=== PATIENT | male | born 1960 | race Caucasian/White ===

== ENCOUNTER → 2018-06-09 | Outpatient (CLI) | payer OTHER ==
--- NOTE | 2018-06-09 15:47 | KCIC ---
MR of the right knee Indication: Right knee pain. Surgery 2014. Injured 2 weeks ago with lateral pain and swelling. Technique: The standard multiplanar sequences are obtained. FINDINGS: Artifact: No significant image degradation. Medial meniscus: Deformity of the medial meniscus with blunting and increased signal, compatible with a tear. Full-thickness radial tear at the posterior root attachment. Medial subluxation. Lateral meniscus: Intact. Anterior cruciate ligament: Intact Posterior cruciate ligament: Intact Medial collateral ligament: Proximal scarring Lateral structures: * Iliotibial band: Intact. * Lateral collateral ligament: Intact. * Biceps femoris tendon: Intact * Popliteus tendon attachment: Intact Extensive mechanism: * Patellar tendon: Mild metallic artifact signal at the proximal tendon could be postsurgical or metallic foreign body. No acute tear. * Quadriceps tendon: Intact * Retinacular structures: Intact Fluid: Small joint effusion. Small Rendon's cyst. Mild fluid/hemorrhage tracking along the posterior knee. Intra-articular bodies: None visualized Joint compartments * patellofemoral joint: Severe chondromalacia * medial compartment: Moderate to severe chondromalacia. Mild subchondral marrow edema at the posterior nonweightbearing medial femoral condyle. * lateral compartment: Mildly depressed subchondral fracture of the posterior lateral tibial plateau, posttraumatic. Fracture demonstrates 2 mm depression. Bones: No other fractures are identified. Soft tissue: Mild anterior subcutaneous edema Impression: 1. Medial meniscal tear. 2. Primary osteoarthritis. 3. Mildly depressed posttraumatic subchondral fracture of the posterior lateral tibial plateau. Voicemail with this finding was left at the referring physician's office. Electronically signed by: Ramez Medel MD (06/09/2018 3:44 PM) [facility]
== END | disposition home or self-care (01) ==
LOC: KCIC MRI 14:37
PROVIDERS: ATTEND Neuromusculoskeletal Medicine & OMM
DX: S83.241A Other tear of medial meniscus, current injury, right knee, initial encounter (principal); M17.11 Unilateral primary osteoarthritis, right knee; X58.XXXA Exposure to other specified factors, initial encounter; Y93.89 Activity, other specified; Y92.89 Other specified places as the place of occurrence of the external cause; Y99.8 Other external cause status
CPT/HCPCS: 73721

== ENCOUNTER 2021-08-01 20:20 | Inpatient (IN) | payer BC ==
[~2021-08-01] VITALS: Ht 188 cm; Wt 114.3 kg
[2021-08-01 20:28] VITALS: BP 140/98
--- NOTE | 2021-08-01 20:35 | NUR ---
The patient, SILVANO WALKER, 60 y/o, M admitted by SUPRIYA REID MD, was given written information regarding hospital policies, unit procedures and contact persons. Pt arrived to unit per ems pt assisted to bed with standby assist campus monitor applied vs obtained and stable pt denied pain at this time but c/o shortness of breath o2 @2l applied to pt assessment completed poc explained to pt. Call placed to for further admit orders call light placed in reach will resume care and continue to monitor pt.
[2021-08-01] MEDS ORDERED: METOPROLOL TART IMMED RELEASE 25 MG TABLET. PO ONE (21:15)
[2021-08-01] MEDS ORDERED: METO25TA4 PO (21:22)
[2021-08-01] MEDS ORDERED: METF10007 PO (21:22)
[2021-08-01] MEDS ORDERED: CITA20TA9 PO (21:22)
[2021-08-01] MEDS ORDERED: POTA20TA4 PO (21:22)
[2021-08-01] MEDS ORDERED: TIOT18CA IH (21:22)
[2021-08-01] MEDS ORDERED: FURO40TA4 IVP (21:22)
[2021-08-01] MEDS ORDERED: ASPI-630 PO (21:22)
[2021-08-01] MEDS ORDERED: CLON0.2T PO (21:22)
[2021-08-01] MEDS ORDERED: LOSA-73 PO (21:22)
[2021-08-01] MEDS ORDERED: MULT-735 PO (21:22)
[2021-08-01] MEDS ORDERED: LATA7.5D OU (21:22)
[2021-08-01] MEDS ORDERED: PEG15DRO4 OS (21:22)
[2021-08-01] MEDS ORDERED: METO50TA4 PO (21:22)
[2021-08-01] MEDS ORDERED: TERA1CAP3 PO (21:22)
[2021-08-01] MEDS ORDERED: SPIR25TA5 PO (21:22)
[2021-08-01] MEDS ORDERED: ALBU2.5V14 NEB (21:22)
[2021-08-01] MEDS ORDERED: ATOR20TA PO (21:22)
[2021-08-01] MEDS ORDERED: DORZ1DRO5 EACHEYE (21:22)
[2021-08-01] MEDS ORDERED: DEXTROSE 50% 25 GM / 50ML DISP.SYRIN. IV PRN (21:45)
[2021-08-01] MEDS ORDERED: ATORVASTATIN CALCIUM 20 MG TABLET PO SCH (22:00)
[2021-08-01] MEDS: TERAZOSIN 1 MG CAPSULE. PO SCH (22:33)
[2021-08-01] MEDS: cloNIDine HCL 0.2 MG TABLET PO SCH (22:33)
[2021-08-01] MEDS: LATANOPROST 0.005% OPHTH SOLUTION 2.5ML BOTTLE. OU SCH (22:34)
[2021-08-01] MEDS: TIMOLOL 0.5% OPHTH SOLUTION 5ML BOTTLE. OU SCH (22:35)
[2021-08-01] MEDS: DORZOLAMIDE 2% OPHTH SOLUTION 10ML BOTTLE. OU SCH (22:35)
[2021-08-01 22:41] VITALS: BP 187/86
[2021-08-02] VITALS (12 sets, daily range): BP systolic 121–213; BP diastolic 62–125
[2021-08-02] MEDS: ALBUTEROL SULFATE 2.5 MG/3 ML NEBU. NEB PRN (01:40)
[2021-08-02] MEDS: AMIODARONE 450 MG in IV DEXTROSE 5% 250 ML IV PRN ×2 (01:59→20:12)
[2021-08-02] MEDS: POTASSIUM CHLORIDE 20 MEQ TABLET.ER. PO SCH ×3 (08:00→17:20)
[2021-08-02] MEDS: INSULIN LISPRO 300 UNITS/3 ML VIAL. SQ SCH ×3 (08:00→17:21)
[2021-08-02] MEDS ORDERED: IPRATRPIUM/ALBUTEROL 0.5/2.5MG 3 ML NEBU. NEB SCH (08:00)
[2021-08-02] MEDS ORDERED: IOHEXOL 300 MG/ML 100ML VIAL. ONE (08:30)
[2021-08-02] MEDS ORDERED: LIDOCAINE 1% PF 2 ML VIAL. ONE (08:30)
[2021-08-02] MEDS: cloNIDine HCL 0.2 MG TABLET PO SCH ×3 (09:00→21:41)
[2021-08-02] MEDS: ASPIRIN CHEWABLE 81 MG TABLET. PO SCH ×2 (09:00→11:07)
[2021-08-02] MEDS: SPIRIVA INH SCH (09:00)
[2021-08-02] MEDS: SPIRONOLACTONE 25 MG TABLET PO SCH ×2 (09:00→11:05)
[2021-08-02] MEDS: CITALOPRAM 20 MG TABLET. PO SCH ×2 (09:00→11:05)
[2021-08-02] MEDS: TIMOLOL 0.5% OPHTH SOLUTION 5ML BOTTLE. OU SCH ×2 (09:00→21:40)
[2021-08-02] MEDS: LOSARTAN POTASSIUM 50 MG TABLET. PO SCH ×2 (09:00→11:05)
[2021-08-02] MEDS: MULTIVITAMIN with MINERAL TABLET. PO SCH ×2 (09:00→11:05)
[2021-08-02] MEDS: METOPROLOL SUCC 24HR ER 50 MG TAB.ER.24H. PO SCH ×2 (09:00→11:05)
[2021-08-02] MEDS: DORZOLAMIDE 2% OPHTH SOLUTION 10ML BOTTLE. OU SCH ×2 (09:00→21:40)
[2021-08-02] MEDS ORDERED: HEPARIN for IV BOLUS 10,000 UNIT/10 ML VIAL. ONE (09:08)
[2021-08-02] MEDS ORDERED: MIDAZOLAM HCL/PF 2 MG/2 ML VIAL. ONE ×2 (09:08→10:17)
[2021-08-02] MEDS ORDERED: VERAPAMIL 5 MG/2 ML VIAL. ONE (09:08)
[2021-08-02] MEDS ORDERED: fentaNYL PF VIAL 100 MCG/2 ML VIAL ONE (09:08)
[2021-08-02] MEDS ORDERED: NITROGLYCERIN 200 MCG/2 ML SYRINGE FOR CATH/VASC LAB. ONE ×2 (09:09→10:21)
[2021-08-02] MEDS ORDERED: LIDOCAINE 1% Multi-Dose 20 ML VIAL. ONE (09:21)
[2021-08-02] MEDS ORDERED: VERAPAMIL 5 MG/2 ML VIAL. IART ONE (10:00)
[2021-08-02] MEDS ORDERED: IOHEXOL 350 MG/ML 100 ML VIAL. IART ONE (10:00)
[2021-08-02] MEDS ORDERED: NITROGLYCERIN 200 MCG/2 ML SYRINGE FOR CATH/VASC LAB. IART ONE (10:00)
[2021-08-02] MEDS ORDERED: LIDOCAINE 1% Multi-Dose 20 ML VIAL. INJ ONE (10:00)
[2021-08-02] MEDS ORDERED: LIDOCAINE 1% PF 2 ML VIAL. INJ ONE (10:00)
[2021-08-02] MEDS ORDERED: MIDAZOLAM HCL/PF 2 MG/2 ML VIAL. IV ONE (10:00)
[2021-08-02] MEDS ORDERED: fentaNYL PF VIAL 100 MCG/2 ML VIAL IV ONE (10:00)
[2021-08-02] MEDS ORDERED: HEPARIN for IV BOLUS 10,000 UNIT/10 ML VIAL. IART ONE (10:00)
[2021-08-02] MEDS ORDERED: LIDOCAINE 2%/EPI 1:100,000 20 ML VIAL. ONE (10:04)
[2021-08-02] MEDS ORDERED: TIROFIBAN 5MG -0.9% NS 100 ML IV ONE ×2 (10:04→10:45)
[2021-08-02] MEDS ORDERED: CONTRAST GIVEN. MC PRN (10:15)
[2021-08-02] MEDS ORDERED: HEPARIN for IV BOLUS 10,000 UNIT/10 ML VIAL. IVP ONE (10:15)
--- NOTE | 2021-08-02 10:19 | HP ---
ADMIT DATE: 08/01/2021 HISTORY OF PRESENT ILLNESS: The patient is a 60-year-old male patient who was transferred from [facility] for cardiac catheterization. He presented to the Emergency Room with a complaint of what seemed to be paroxysmal nocturnal dyspnea. He woke up with shortness of breath the day before yesterday and the day before admission and also again he took one of his 's breathing treatment and the same thing happened the night before and therefore presented to the Emergency Room. He denied any chest pain. Did complain of chest pressure. Denied any radiation of the pain to the left arm, left neck. Denied any chills, rigors or fever. He does have multiple medical problems including type 2 diabetes mellitus, hypertension, emphysema. He apparently was a heavy smoker, quit smoking about 13 years ago, used to smoke 2 packs a day, has multiple risk factors of coronary artery disease. He did undergo cardiac catheterization on 10/10/2005. Has had also cardiac catheterization in 2016 about 5 years ago. At that time, his coronary arteries were normal. In the case, he was admitted with a diagnosis of acute hypoxic respiratory failure, acute on chronic systolic congestive heart failure and COPD exacerbation. His 3 cardiac enzymes are trending up. He was seen in consultation by the Cardiology team. He was started on a heparin drip and has an echocardiogram, which showed that his left ventricular systolic function is depressed. He has basal inferior, posterior and lateral wall hypokinesis. His ejection fraction is estimated at 40%, [id number] mitral regurgitation, mild tricuspid regurgitation. The pulmonary artery pressure estimated at 47 mmHg. There is no evidence of significant pericardial effusion and therefore, the patient was transferred to [facility] for cardiac catheterization. PAST MEDICAL HISTORY: Significant for type 2 diabetes mellitus, hypertension, hyperlipidemia, benign prostatic hypertrophy. 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 PAST SURGICAL HISTORY: Significant for YAG laser capsulotomy, both eyes; endoscopic sinus surgery, oral surgery to remove a growth on the tongue on 11/23/2015. He underwent cardiac catheterization on 12/11/2004. His aorta is about 30% thick. He has had retinal detachment to the right eye on 12/28/2014. He has cataract in the left eye, removed and he also underwent arthroscopic right knee surgery and carpal tunnel release. ALLERGIES: ALLERGIC TO ADHESIVE TAPE, but he has no known drug allergies. FAMILY HISTORY: He has 3 sisters and 2 brothers, 1 sister is positive for Manolo-Danlos syndrome, 1 sister had thyroid, hypertension, 1 sister is healthy, 1 brother at age of 55 because of alcoholism. His father at age of 68 because of congestive heart failure and COPD. His mother is still alive at the age of 85. Has multiple TIAs. SOCIAL HISTORY: He is , has three stepchildren. He quit smoking about 13 years ago. He used to smoke 2 packs a day for almost 30 years. He does not drink alcohol or use recreational drugs. He is a retired from [employer] after working there for 40 years. MEDICATIONS: He was transferred to [facility] to continue on the following medications: He was on Spiriva HandiHaler one inhalation once a day, multivitamin 1 tablet once a day, spironolactone 25 mg daily, metoprolol succinate 50 mg once a day, losartan potassium 50 mg daily, citalopram hydrobromide 20 mg daily, aspirin 81 mg once a day. He is on NovoLog insulin as per insulin sliding scale before meals, potassium chloride 40 mEq twice a day, timolol maleate 1 drop to both eyes twice a day, latanoprost 1 drop to both eyes at bedtime, dorzolamide 1 drop to both eyes twice a day and albuterol sulfate 2.5 mg by nebulizer 4 times a day, a terazosin 1 mg at bedtime, clonidine 0.2 mg twice a day, atorvastatin 20 mg at bedtime. PHYSICAL EXAMINATION: GENERAL: On arrival to the [facility], he looked well and was clearly in no apparent respiratory distress. No pallor, jaundice, cyanosis, or thyromegaly. No jugular venous distention. No lower limb edema. VITAL SIGNS: His heart rate was 87, blood pressure was 140/98, temperature was 98.6, respiratory rate was 16 and oxygen saturation was 92% on room air. HEAD, EYES, EARS, NOSE, AND THROAT: Showed normocephalic, atraumatic. NECK: Supple. HEART: Showed normal first and second heart sounds, no gallop or murmur. CHEST: Showed central trachea, equally reduced expansion, reduced air entry, vesicular breath sounds. I could not really appreciate any crepitation or rhonchi. ABDOMEN: Distended, soft, nontender. NEUROLOGIC: He was grossly intact. ASSESSMENT AND PLAN: 1. In summary, this is a 60-year-old male patient, who was admitted to [facility] with chest pressure and acute hypoxic respiratory failure, multifactorial including: A. Acute on chronic systolic congestive heart failure. B. Acute exacerbation of chronic obstructive pulmonary disease. 2. Cardiomyopathy with depressed left ventricular systolic function. 3. Mild troponin elevation. 4. Hypertension. 5. History of Manolo-Danlos syndrome. Plan is to continue all his current medication. We will consult the Cardiology team and decide the further management accordingly. JORDAN DR: Glendy TID: [id number]
[2021-08-02] MEDS ORDERED: PRASUGREL 10 MG TABLET. ONE (10:44)
[2021-08-02] MEDS ORDERED: PRASUGREL 10 MG TABLET. PO SCH (10:45)
[2021-08-02] MEDS ORDERED: PRASUGREL 10 MG TABLET. PO ONE (10:45)
[2021-08-02] MEDS: TIROFIBAN 5MG -0.9% NS 100 ML IV PRN ×2 (10:46→11:09)
--- NOTE | 2021-08-02 11:15 | NUR ---
Patient taken to room 650 post [facility]. Report given to Kristy QUEEN. Notified of order to continue Aggrastat x6hrs, Amiodarone gtt until tomorrow, 08/03. Effient 60mg given in room. Instructions provided on not using wrist, armboard-- patient and verbalized understanding. VS stable, no bleeding upon leaving room.
--- NOTE | 2021-08-02 11:17 | CARD ---
MR#: [id number] Date of Study: 08/02/2021 Ordering Physician: LESLEE LIMA, Referring Physician: LESLEE LIMA, Tech: RT Bowen(R) APPROVED REPORT Technologist: Emely Stubbs RT(R) Nurse: Elisha Piedra RN Procedure(s) performed: Fluoro time: 8.3 minutes Dose: 117.2 gycm2 Contrast: 109cc Omnipaque Mod Sedation: 56 minutes [facility] Coronary angiography PCI of the RCA IVUS of the RCA INDICATION The indication(s) include : non-STEMI , dyspnea. CSHA Clinical Frailty Scale CS Clinical Frailty Scale: Moderately Frail Heart Failure Heart Failure: Yes If Yes, Newly Diagnosed: Yes If Yes, HF Type: Diastolic Systolic If Yes, NYHA Class: Class III PROCEDURE NARRATIVE Clinical information: 60-year-old male presents to the hospital in the setting of worsening exertional dyspnea. He was fou nd to have severe LV systolic dysfunction with frequent PVCs and PACs and persistent unstable angina and elevated troponin and therefore he was taken to the catheterization laboratory for further evalua tion and treatment. Procedure details: After appropriate informed consent the right neck and right wrist were prepped and draped in usual st erile fashion. Under 1% lidocaine local anesthesia a 5 Malawian sheath was inserted into the right int ernal jugular vein via ultrasound guidance. Next a 6 Malawian sheath was inserted into the right radia l artery via the Seldinger technique. A 5 Malawian PA catheter was then advanced to the right heart chambers and pressures and saturations we re obtained. Next diagnostic angiography was performed with a 6 Malawian TIG catheter and a left ventr icular end-diastolic pressure was obtained and a pullback was performed. Findings: Aorta: 150/80 Right heart catheterization: RA 10/9/5 RV 52/2/10 PA 47/23/30 Wedge 26 mmHg PA saturation 61% FA saturation 92% Bryson cardiac output 5.9 L/min LVEDP 26 mmHg No aortic to LV pullback gradient Coronary angiography: LM: Large caliber vessel with normal angiographic appearance. LAD: Moderate to large caliber vessel with mild luminal irregularities. D1/D2: Small caliber vessels with mild luminal irregularities. LCX: Moderate caliber non-dominant vessel with mild luminal irregularities. LPL1: Moderate caliber vessel with mild luminal irregularities. RCA: Large caliber dominant vessel with a proximal 80% stenosis RPDA and RPL: Moderate caliber vessels with mild luminal irregularities Interventional technique: Heparin and tirofiban were used for anticoagulation. A 6 Malawian JR4 guide catheter was used to engag e the right coronary artery. A [employer] wire was used to cross the lesion and angioplasty was then p erformed with a 4.0 x 12 mm balloon. Next, a [employer] intravascular ultrasound catheter was advanced to the right coronary artery and measurements were made. Next, a 5.0 x 22 mm resolute drug-eluting s tent was implanted at 14 chapo. Final angiography demonstrated excellent stent expansion with AARON-3 f low in the vessel no evidence of guide or wire related complications. The patient received 60 mg of prasugrel at case completion. At case completion the right radial sheath was removed and hemostasis was achieved via a Terumo radia l band. The right IJ sheath was removed prior to the start of the intervention and hemostasis was ac hieved via manual compression. No acute complications. AARON Flow AARON Flow (Pre-Intervention): AARON-3 AARON Flow (Post-Intervention): AARON-3 Conclusion 1. Elevated biventricular filling pressures. 2. Mild pulmonary hypertension secondary to left-sided heart failure 3. Normal cardiac output 4. One-vessel coronary artery disease involving the right coronary artery 5. Successful PCI of the RCA with implantation of a 5.0 x 22 mm resolute drug-eluting stent with int ravascular ultrasound guidance. Recommendations 1. Aspirin 81 mg daily 2. Prasugrel 10 mg daily 3. Cardiac rehabilitation referral 4. High-dose statin therapy 5. Initiation of goal-directed medical therapy including Toprol-XL, Entresto and spironolactone for mixed ischemic and nonischemic cardiomyopathy. Close outpatient follow-up for initiation of SGLT-2 i nhibitor therapy. 6. Consideration of LifeVest given frequent PVCs Signed by : Leslee Lima, Electronically Approved : 08/02/2021 11:17:11
[2021-08-02] MEDS ORDERED: NITROGLYCERIN SUBLINGUAL 0.4 MG BOTTLE OF 25. SL ONE (11:54)
[2021-08-02] MEDS ORDERED: hydrALAZINE 20 MG/ML VIAL. IVP ONE (12:00)
[2021-08-02] MEDS ORDERED: hydrALAZINE 20 MG/ML VIAL. IVP PRN (12:00)
[2021-08-02] MEDS ORDERED: hydrALAZINE 10 MG TABLET PO ONE (12:00)
[2021-08-02] MEDS ORDERED: MORPHINE SULFATE 2 MG/ML INJ. IVP ONE (12:30)
--- NOTE | 2021-08-02 15:00 | NUR ---
SS following for discharge planning. SS reviewed pt chart and discussed with pt RN. Pt is from home with spouse and is currently requiring oxygen at four liters nasal canula. Cardiology consulted. Pt had left heart cath today. Pt has home oxygen and home CPAP. SS will continue to follow for discharge planning.
[2021-08-02] MEDS ORDERED: FUROSEMIDE 40 MG/4 ML VIAL. IVP ONE ×2 (15:30)
[2021-08-02] MEDS ORDERED: POTASSIUM CHLORIDE 20 MEQ TABLET.ER. PO ONE (15:30)
[2021-08-02] MEDS ORDERED: BENZOCAINE/MENTHOL LOZENGE. PO PRN (20:30)
[2021-08-02] MEDS: LATANOPROST 0.005% OPHTH SOLUTION 2.5ML BOTTLE. OU SCH (21:40)
[2021-08-02] MEDS: TERAZOSIN 1 MG CAPSULE. PO SCH (21:41)
[2021-08-02] MEDS: ATORVASTATIN CALCIUM 40 MG TABLET. PO SCH (21:41)
[2021-08-03 03:00] VITALS: BP 142/85
[2021-08-03 07:00] VITALS: BP 176/92
[2021-08-03 08:01] LABS: HEMATOCRIT 36.6 % (39.0-53.0); HEMOGLOBIN 12.4 g/dL (13.0-17.5); RED BLOOD COUNT 3.99 x10^6/uL (4.30-5.70); RED CELL DISTRIBUTION WIDTH 14.7 % (11.5-14.5); WHITE BLOOD COUNT 12.4 x10^3/uL (4.0-11.0)
[2021-08-03] MEDS: DORZOLAMIDE 2% OPHTH SOLUTION 10ML BOTTLE. OU SCH ×2 (08:16→20:17)
[2021-08-03] MEDS: TIMOLOL 0.5% OPHTH SOLUTION 5ML BOTTLE. OU SCH ×2 (08:16→20:17)
[2021-08-03] MEDS: PRASUGREL 10 MG TABLET. PO SCH (08:18)
[2021-08-03] MEDS: ASPIRIN CHEWABLE 81 MG TABLET. PO SCH (08:20)
[2021-08-03] MEDS: cloNIDine HCL 0.2 MG TABLET PO SCH ×2 (08:20→20:17)
[2021-08-03] MEDS: MULTIVITAMIN with MINERAL TABLET. PO SCH (08:21)
[2021-08-03] MEDS: CITALOPRAM 20 MG TABLET. PO SCH (08:21)
[2021-08-03] MEDS: METOPROLOL SUCC 24HR ER 50 MG TAB.ER.24H. PO SCH (08:22)
[2021-08-03] MEDS: SACUBITRIL/VALSARTAN 49/51MG TABLET. PO SCH ×2 (08:23→20:16)
[2021-08-03] MEDS: INSULIN LISPRO 300 UNITS/3 ML VIAL. SQ SCH ×3 (08:28→17:58)
[2021-08-03] MEDS: SPIRIVA INH SCH (08:32)
[2021-08-03] MEDS: SPIRONOLACTONE 25 MG TABLET PO SCH (08:36)
[2021-08-03] MEDS: ALBUTEROL SULFATE 2.5 MG/3 ML NEBU. NEB PRN (08:39)
[2021-08-03 08:43] LABS: ALBUMIN 3.2 g/dL (3.4-5.0); ALBUMIN/GLOBULIN RATIO 0.9 (1.0-1.7); CALCIUM 8.1 mg/dL (8.5-10.1); GFR 75.7; POTASSIUM 3.2 mmol/L (3.5-5.1); TOTAL BILIRUBIN 2.3 mg/dL (0.2-1.0); TOTAL PROTEIN 6.9 g/dL (6.4-8.2)
[2021-08-03] MEDS ORDERED: FUROSEMIDE 40 MG/4 ML VIAL. IVP ONE (09:45)
[2021-08-03] MEDS: POTASSIUM CHLORIDE 20 MEQ TABLET.ER. PO SCH ×2 (10:28→17:49)
[2021-08-03 11:00] VITALS: BP 138/89
--- NOTE | 2021-08-03 11:02 | NUR ---
SS following up with discharge planning. SS reviewed pt chart and discussed with pt RN. Pt is currently requiring oxygen at three liters nasal canula. Pt had heart cath on 08/02/2021. PT/OT ordered. Pt has no home oxygen. Probable needs for six minute walk prior to discharge. SS will continue to follow for discharge planning. Addendum: 08/03/21 at 1106 by LISA MAR Order received for Life Vest. SS phoned and faxed order and clinical [facility], ; [phone]. Addendum: 08/03/21 at 1536 by LISA KAPLAN SS notified that pt does NOT qualify for Life Vest due to EF of 40%. EF needing to be 35% or below. Cardiology notified as well.
--- NOTE | 2021-08-03 11:11 | PDOC ---
CINDY ANGEL BOAT OUTFITTING SUPERVISOR 08/03/21 1111: CARDIO Progress Notes Date and Time Date of Service 08/03/2021 Time of Evaluation 1000 Subjective Subjective: No Chest Pain, No Palpitations, Other (complains of voice hoarseness, SOA with activity) Vitals Vitals Vital Signs Date Time Temp Pulse Resp B/P (MAP) Pulse Ox O2 Delivery O2 Flow Rate FiO2 08/03/21 08:40 96 Nasal Cannula 3.0 08/03/21 08:23 80 176/92 08/03/21 07:00 97.8 22 97.8 Weight Weight [ ] Input and Output Intake and Output Intake and Output 08/03/21 07:00 Intake Total 280 ml Output Total 1050 ml Balance -770 ml Intake Oral 280 ml Output Urine Total 1050 ml Laboratory Labs Laboratory Tests Test 08/02/21 11:49 08/02/21 16:39 08/02/21 21:38 08/03/21 06:05 Glucose (Fingerstick) 202 mg/dL (70-99) 190 mg/dL (70-99) 127 mg/dL (70-99) White Blood Count 12.4 x10^3/uL (4.0-11.0) Red Blood Count 3.99 x10^6/uL (4.30-5.70) Hemoglobin 12.4 g/dL (13.0-17.5) Hematocrit 36.6 % (39.0-53.0) Mean Corpuscular Volume 92 fL (79-100) Mean Corpuscular Hemoglobin 31 pg (25-35) Mean Corpuscular Hemoglobin Concent 34 g/dL (31-37) Red Cell Distribution Width 14.7 % (11.5-14.5) Platelet Count 232 x10^3/uL (140-400) Sodium Level 140 mmol/L (136-145) Potassium Level 3.2 mmol/L (3.5-5.1) Chloride Level 103 mmol/L (98-107) Carbon Dioxide Level 26 mmol/L (21-32) Anion Gap 11 (6-14) Blood Urea Nitrogen 15 mg/dL (8-26) Creatinine 1.0 mg/dL (0.7-1.3) Estimated GFR (Cockcroft-Gault) 75.7 BUN/Creatinine Ratio 15 (6-20) Glucose Level 148 mg/dL (70-99) Calcium Level 8.1 mg/dL (8.5-10.1) Magnesium Level 2.0 mg/dL (1.8-2.4) Total Bilirubin 2.3 mg/dL (0.2-1.0) Aspartate Amino Transf (AST/SGOT) 24 U/L (15-37) Alanine Aminotransferase (ALT/SGPT) 52 U/L (16-63) Alkaline Phosphatase 60 U/L (46-116) Total Protein 6.9 g/dL (6.4-8.2) Albumin 3.2 g/dL (3.4-5.0) Albumin/Globulin Ratio 0.9 (1.0-1.7) Test 08/03/21 07:36 Glucose (Fingerstick) 184 mg/dL (70-99) Physical Exam HEENT: Neck Supple W Full Motion Chest: Symmetric LUNGS: Other (basilar crackles diminished) Heart: RRR (SR with multifocal PVCs) Abdomen: Soft N/T Extremities: Other (2-3+ bilateral LE pitting edema) Neurology: alert, oriented, follow commands Assessment Assessment 1. Acute respiratory failure with acute CHF and AE COPD 2. Acute on chronic systolic CHF 3. ICM; EF at 40% 4. Arrhythmia; EKG shows SR with RBBB and multifocal PVC's and PAC's. No AFIB noted. Continue to have frequent PVC's, PAC's 5. NSTEMI: S/P PCIDES to RCA 6. Hypertension; controlled 7. H/o Manolo-Danlos syndrome 8. Hypokalemia 9. Dysphonia: chronic? per PCP Recommendations 1. ASA/effient 2. Rehab to start will need 6 min walk prior to DC 3. Lasix therapy. K replacement 4. Secondary prevention measures with HF optimization including aldactone and entresto 5. Continue Amiodarone for rhythm maintenance Justicifation of Admission Dx: Justifications for Admission: Justification of Admission Dx: Yes LESLEE LIMA MD 08/03/21 4737: CARDIO Progress Notes Plan Plan The patient was seen and interviewed as well as examined at the bedside. The chart was reviewed. The case was discussed. Agree with the plan of care. CINDY ANGEL APRN Aug 03, 2021 11:11 LESLEE LIMA MD Aug 03, 2021 17:07
[2021-08-03] MEDS: IPRATRPIUM/ALBUTEROL 0.5/2.5MG 3 ML NEBU. NEB SCH ×4 (12:10→20:33)
--- NOTE | 2021-08-03 12:51 | PN ---
DATE: 08/03/2021 SUBJECTIVE: The patient is resting, slightly propped up in bed, complaining of shortness of breath and cough that is mostly dry and distressing. Denied any chest pain. He apparently underwent cardiac catheterization, which basically showed that he has elevated biventricular filling pressure, mild pulmonary hypertension secondary to left sided heart failure, normal cardiac output, one-vessel coronary artery disease involving the right coronary artery for which he underwent successful PCI with implantation of a Resolute drug-eluting stent with intravascular ultrasound guidance and the child care leader recommended aspirin, prasugrel, cardiac rehabilitation, high dose statin. Apparently, the patient went into flash pulmonary edema for which he was treated with IV Lasix. OBJECTIVE: GENERAL: When I saw him today he was somewhat tachypneic, but there is no pallor, jaundice, cyanosis or thyromegaly. No jugular venous distention, but mild bilateral lower limb edema. VITAL SIGNS: His heart rate was 80, blood pressure is 176/92, temperature 97.8, respiratory rate was 22 and oxygen saturation was 96% on 3 liters of oxygen. HEAD, EYES, EARS, NOSE, AND THROAT: Normocephalic, atraumatic. NECK: Supple. HEART: Showed normal first and second heart sounds. No gallop, rub or murmur. CHEST: Showed central trachea, equally reduced expansion, reduced air entry, vesicular breath sounds with crepitation bilaterally posteriorly and scattered rhonchi diffusely. ABDOMEN: His abdomen was distended, soft, nontender. NEUROLOGIC: He was grossly intact. His intake over the last 24 hours was 400, output was 800. LABORATORY AND DIAGNOSTIC DATA: As of this morning, his serum sodium 140, potassium 3.2, chloride 103, bicarbonate 26, anion gap of 11, BUN 15, creatinine 1, estimated GFR was 75 mL per minute, his glucose 148, calcium was 8.1, magnesium 2, bilirubin 2.3. AST, ALT, alkaline phosphatase were normal. Total protein was 6.9, albumin was 3.2. His white cell count was 12,400, hemoglobin 12, hematocrit 36, MCV 92 and platelet count 232,000. ASSESSMENT: 1. Non-ST segment elevation, status post percutaneous coronary intervention with drug-eluting stent to the right coronary artery. 2. Acute hypoxic respiratory failure secondary to acute congestive heart failure and acute exacerbation of chronic obstructive pulmonary disease. 3. Acute on chronic systolic congestive heart failure. 4. Ischemic cardiomyopathy. 5. Arrhythmias. EKG showed he was in sinus rhythm with right bundle branch block with multifocal premature ventricular contractions and premature atrial contraction. 6. Hypertension. 7. Manolo-Danlos syndrome. 8. Hypokalemia. The patient was treated with Lasix. He is now on Lasix and amiodarone drip. He is also on Entresto 49/51, prasugrel 10 mg at bedtime, atorvastatin. I will add also DuoNeb and Mucinex. Continue with oxygen supplementation. LUL DR: Glendy TID: [id number]
[2021-08-03] MEDS: AMIODARONE HCL 200 MG TABLET. PO SCH (13:16)
[2021-08-03 15:00] VITALS: BP 137/72
--- NOTE | 2021-08-03 16:47 | RAD ---
EXAM: Chest, single view. HISTORY: Short of breath. COMPARISON: None. FINDINGS: A frontal view of the chest is obtained. There is mild diffuse increased interstitial opaci ty. There is a suspected trace right pleural effusion with right basilar atelectasis. There is a prom inent cardiac silhouette. There is no pneumothorax. IMPRESSION: Suspected diffuse interstitial infiltrate with right lower lobe atelectasis or trace pleu ral effusion. Electronically signed by: Sobeida Ramirez MD (08/03/2021 4:45 PM) [facility]
[2021-08-03] MEDS: FUROSEMIDE 40 MG/4 ML VIAL. IVP SCH (17:49)
[2021-08-03 19:00] VITALS: BP 150/83
--- NOTE | 2021-08-03 20:00 | NUR ---
Pt in bed assessment completed vss poc explained call light in reach will resume care and continue to monitor pt
[2021-08-03] MEDS: ATORVASTATIN CALCIUM 40 MG TABLET. PO SCH (20:16)
[2021-08-03] MEDS: LATANOPROST 0.005% OPHTH SOLUTION 2.5ML BOTTLE. OU SCH (20:17)
[2021-08-03] MEDS: TERAZOSIN 1 MG CAPSULE. PO SCH (20:17)
[2021-08-03 23:00] VITALS: BP 141/77
[2021-08-04 03:01] VITALS: BP 131/69
[2021-08-04 05:08] LABS: CALCIUM 7.8 mg/dL (8.5-10.1); CREATININE 0.9 mg/dL (0.7-1.3); GFR 85.5; POTASSIUM 3.5 mmol/L (3.5-5.1)
[2021-08-04 07:00] VITALS: BP 118/67
[2021-08-04] MEDS: IPRATRPIUM/ALBUTEROL 0.5/2.5MG 3 ML NEBU. NEB SCH ×3 (07:24→15:30)
[2021-08-04] MEDS: ASPIRIN CHEWABLE 81 MG TABLET. PO SCH (08:49)
[2021-08-04] MEDS: FUROSEMIDE 40 MG/4 ML VIAL. IVP SCH (08:49)
[2021-08-04] MEDS: SPIRONOLACTONE 25 MG TABLET PO SCH (08:49)
[2021-08-04] MEDS: METOPROLOL SUCC 24HR ER 50 MG TAB.ER.24H. PO SCH (08:49)
[2021-08-04] MEDS: PRASUGREL 10 MG TABLET. PO SCH (08:49)
[2021-08-04] MEDS: CITALOPRAM 20 MG TABLET. PO SCH (08:49)
[2021-08-04] MEDS: MULTIVITAMIN with MINERAL TABLET. PO SCH (08:50)
[2021-08-04] MEDS: POTASSIUM CHLORIDE 20 MEQ TABLET.ER. PO SCH (08:50)
[2021-08-04] MEDS: SACUBITRIL/VALSARTAN 49/51MG TABLET. PO SCH (08:50)
[2021-08-04] MEDS: cloNIDine HCL 0.2 MG TABLET PO SCH (08:50)
[2021-08-04] MEDS: TIMOLOL 0.5% OPHTH SOLUTION 5ML BOTTLE. OU SCH (08:51)
[2021-08-04] MEDS: AMIODARONE HCL 200 MG TABLET. PO SCH (08:51)
[2021-08-04] MEDS: DORZOLAMIDE 2% OPHTH SOLUTION 10ML BOTTLE. OU SCH (08:51)
[2021-08-04] MEDS: SPIRIVA INH SCH (08:51)
[2021-08-04] MEDS: INSULIN LISPRO 300 UNITS/3 ML VIAL. SQ SCH ×2 (08:58→11:26)
--- NOTE | 2021-08-04 10:43 | PN ---
DATE: 08/04/2021 SUBJECTIVE: The patient is sitting on the edge of the bed comfortably, in no apparent distress. He continued to complain that there is something stuck in his throat, but apparently was able to sleep flat last night with his BiPAP machine. His chest x-ray done yesterday showed that he has diffuse interstitial infiltrate with right lower lobe atelectasis or trace pleural effusion. Apparently, he was told that he would not need the LifeVest. PHYSICAL EXAMINATION: GENERAL: When I examined him this morning, he looked pale, but not jaundiced or cyanosed. No thyromegaly. No jugular venous distention. No limb edema. VITAL SIGNS: His heart rate was 65, blood pressure was 118/67, temperature was 98.1, respiratory rate was 20 and oxygen saturation was 95% on 2 liters of oxygen. HEAD, EYES, EARS, NOSE AND THROAT: Normocephalic, atraumatic. NECK: Supple. HEART: Normal first and second heart sounds. No gallop, rub or murmur. CHEST: Shows central trachea, equally reduced expansion, reduced air entry, vesicular breath sounds with bilateral basal crepitation. NEUROLOGIC: He was grossly intact. ASSESSMENT: 1. Non-ST segment elevation myocardial infarction, status post percutaneous coronary intervention with drug-eluting stent deployment to the right coronary artery. 2. Acute hypoxic respiratory failure secondary to acute congestive heart failure and acute exacerbation of chronic obstructive pulmonary disease. 3. Acute on chronic systolic congestive heart failure. 4. Ischemic cardiomyopathy. 5. Arrhythmias. EKG showed that he was in sinus rhythm with right bundle branch block with multifocal premature ventricular contractions, premature atrial contraction. 6. Hypertension. 7. Manolo-Danlos syndrome. 8. Hypokalemia. PLAN: Continue with all current medications. I have arranged for him to have a CT scan of the soft tissue of the neck and will do a 6-minute walk and await the evaluation by the export freight manager. JUANIS DR: Glendy TID: [id number]
--- NOTE | 2021-08-04 11:04 | RAD ---
Examination: CT neck without IV contrast. History: Feeling upper airway obstruction. Comparison: None. Findings: There is mild symmetric fullness involving the lingual tonsils. Evaluation of the oral cavity is degr aded secondary to significant beam hardening artifact from dental hardware. No lymphadenopathy, mass, mass effect, or definite inflammatory process. Vocal cords are symmetric. The airway is unremarkable in course and caliber. Parotid, submandibular, and thyroid glands are unremarkable. There is moderat e mucosal thickening involving bilateral maxillary sinuses, subtle thickening of the posterior ethmoi d sinuses. Remaining paranasal sinuses, mastoid air cells are clear. Biapical pleural thickening with moderate centrilobular emphysema. No suspicious nodules or masses. The visualized upper esophagus ap pears to have some frothy material in it, suggesting reflux esophagitis or delayed motility. Impression: 1. Mild symmetric fullness of the lingual tonsils, nonspecific, likely reactive. 2. No discrete mass of the visualized aerodigestive tract. 3. Small amount of frothy material within the visualized upper esophagus suggestive of reflux esophag itis and/or delayed motility. GI consultation may be considered. PRQS compliance statement - One or more of the following individualized dose reduction techniques wer e utilized for this study: 1. Automated exposure control 2. Adjustment of the mA and/or kV according to patient size 3. Use of iterative reconstruction technique Electronically signed by: Grover West DO (08/04/2021 11:02 AM) [id number]
[2021-08-04 11:25] VITALS: BP 125/72
[2021-08-04] MEDS ORDERED: SACU1TAB7 PO (12:11)
[2021-08-04] MEDS ORDERED: ATOR40TA59 PO (12:11)
[2021-08-04] MEDS ORDERED: PANT40TA77 PO (12:11)
[2021-08-04] MEDS ORDERED: AMIO400T5 PO (12:11)
[2021-08-04] MEDS ORDERED: PRAS10TA9 PO (12:11)
[2021-08-04 14:26] VITALS: BP 141/63
--- NOTE | 2021-08-04 15:06 | PDOC2 ---
CONSULT Date of Consult Date of Consult DATE: 08/04/21 TIME: 14:57 Reason for Consult Reason for Consult: Sensation of swelling in neck, globus History of Present Illness Reason for Visit: This is a 60-year-old gentleman who presented from transfer at [facility] with a non-STEMI cardiac event. His initial symptoms were dyspnea and shortness of breath. After his initial cardiac evaluation and treatment we were asked to see him because he complained of some swelling or fullness in his throat region. He describes that he has a history of mucus drainage causing some occasional irritation but never with symptoms to this extent. He also describes intermittent hoarseness that occurs sometimes at the end of the day. He is an ex-smoker, quit 13 years ago. He denies a history of classic heartburn or acid reflux symptoms and has not been on any sort of treatment in the past. He describes regular bowel pattern without rectal bleeding. He describes a negative colonoscopy in the past. He is never had an upper endoscopy. Past Medical History Cardiovascular: HTN, ME, Hyperlipidemia Pulmonary: Other (Obstructive sleep apnea) Renal/: Benign prostatic enlarg. Current Medications Current Medications Current Medications Aspirin (Aspirin Chewable) 81 mg DAILY PO Last administered on 08/04/21at 08:49; Start 08/02/21 at 09:00 Atorvastatin Calcium (Lipitor) 20 mg HS PO Last administered on 08/01/21at 22:34; Start 08/01/21 at 22:00; Stop 08/02/21 at 12:01; Status DC Citalopram Hydrobromide (CeleXA) 20 mg DAILY PO Last administered on 08/04/21 08:49; Start 08/02/21 at 09:00 Clonidine HCl (Catapres) 0.2 mg BID PO Last administered on 08/04/21at 08:50; Start 08/01/21 at 22:00 Losartan Potassium (Cozaar) 50 mg DAILY PO Last administered on 08/02/21at 11:05; Start 08/02/21 at 09:00; Stop 08/02/21 at 12:01; Status DC Metoprolol Succinate (Toprol Xl) 50 mg DAILY PO Last administered on 08/04/21at 08:49; Start 08/02/21 at 09:00 Metoprolol Tartrate (Lopressor) 25 mg 1X ONCE PO Last administered on 10/13/21at 22:34; Start 08/01/21 at 21:15; Stop 08/01/21 at 21:47; Status DC Potassium Chloride (Klor-Con) 40 meq BIDWMEALS PO Last administered on 08/04/21at 08:50; Start 08/02/21 at 08:00 Spironolactone (Aldactone) 25 mg DAILY PO Last administered on 08/02/21at 11:05; Start 08/02/21 at 09:00; Stop 08/03/21 at 08:34; Status DC Terazosin HCl (Hytrin) 1 mg HS PO Last administered on 08/03/21at 20:17; Start 08/01/21 at 22:00 Albuterol Sulfate (Ventolin Neb Soln) 2.5 mg PRN Q6HRS PRN NEB SHORTNESS OF BREATH Last administered on 08/03/21at 08:39; Start 08/01/21 at 22:00 Dorzolamide HCl (Trusopt) 1 drop BID OU Last administered on 08/04/21at 08:51; Start 08/01/21 at 22:00 Latanoprost (Xalatan) 1 drop QHS OU Last administered on 08/03/21at 20:17; Start 08/01/21 at 22:00 Multivitamins (Thera M Plus) 1 tab DAILY PO Last administered on 08/04/21at 08:50; Start 08/02/21 at 09:00 Albuterol/ Ipratropium (Duoneb) 3 ml RTQID NEB ; Start 08/02/21 at 08:00; Status Cancel Insulin Human Lispro (HumaLOG) 0-5 UNITS TIDWMEALS SQ Last administered on 08/04/21at 11:26; Start 08/02/21 at 08:00 Dextrose (Dextrose 50%-Water Syringe) 12.5 gm PRN Q15MIN PRN IV SEE COMMENTS; Start 08/01/21 at 21:45 Amiodarone HCl 450 mg/Dextrose 259 ml @ 17 mls/hr CONT PRN IV SEE I/O RECORD Last administered on 08/02/21at 20:12; Start 08/01/21 at 21:45; Stop 08/02/21 at 21:44; Status DC Timolol Maleate (Timoptic 0.5% Oph) 1 drop BID OU Last administered on 08/04/21at 08:51; Start 08/01/21 at 22:00 Non-Formulary Medication (Spiriva (Tiotropium [place] Inhalation Powder)) 1 ea DAILY INH Last administered on 08/02/21at 09:00; Start 08/02/21 at 09:00 Lidocaine HCl (Xylocaine-Mpf 1% 2ml Vial) 2 ml STK-MED ONCE .ROUTE ; Start 08/02/21 at 08:30; Stop 08/02/21 at 08:30; Status DC Iohexol (Omnipaque 300 Mg/ml) 100 ml STK-MED ONCE .ROUTE ; Start 08/02/21 at 08:30; Stop 08/02/21 at 08:31; Status DC Heparin Sodium/ Sodium Chloride 1,000 ml @ As Directed STK-MED ONCE .ROUTE ; Start 08/02/21 at 08:30; Stop 08/02/21 at 08:31; Status DC Heparin Sodium/ Sodium Chloride 500 ml @ As Directed STK-MED ONCE .ROUTE ; Start 08/02/21 at 08:32; Stop 08/02/21 at 08:32; Status DC Fentanyl Citrate (Fentanyl 2ml Vial) 100 mcg STK-MED ONCE .ROUTE ; Start 08/02/21 at 09:08; Stop 08/02/21 at 09:08; Status DC Midazolam HCl (Versed) 2 mg STK-MED ONCE .ROUTE ; Start 08/02/21 at 09:08; Stop 08/02/21 at 09:08; Status DC Heparin Sodium (Porcine) (Heparin Sodium) 10,000 unit STK-MED ONCE .ROUTE ; Start 08/02/21 at 09:08; Stop 08/02/21 at 09:08; Status DC Verapamil HCl (Verapamil) 5 mg STK-MED ONCE .ROUTE ; Start 08/02/21 at 09:08; Stop 08/02/21 at 09:08; Status DC Nitroglycerin (Nitroglycerin) 200 mcg STK-MED ONCE .ROUTE ; Start 08/02/21 at 09:09; Stop 08/02/21 at 09:09; Status DC Lidocaine HCl (Lidocaine 1% 20ml Vial) 20 ml STK-MED ONCE .ROUTE ; Start 08/02/21 at 09:21; Stop 08/02/21 at 09:21; Status DC Nitroglycerin (Nitroglycerin) 200 mcg 1X ONCE IART Last administered on 08/02/21at 10:00; Start 08/02/21 at 10:00; Stop 08/02/21 at 10:07; Status DC Verapamil HCl (Verapamil) 2.5 mg 1X ONCE IART Last administered on 08/02/21at 10:00; Start 08/02/21 at 10:00; Stop 08/02/21 at 10:07; Status DC Heparin Sodium (Porcine) (Heparin Sodium) 2,500 unit 1X ONCE IART Last administered on 08/02/21at 10:00; Start 08/02/21 at 10:00; Stop 08/02/21 at 10:07; Status DC Heparin Sodium/ Sodium Chloride (HEPARIN for ARTERIAL LINE FLUSH) 1,000 unit 1X ONCE IART Last administered on 08/02/21at 10:00; Start 08/02/21 at 10:00; Stop 08/02/21 at 10:07; Status DC Midazolam HCl (Versed) 2 mg 1X ONCE IV Last administered on 08/02/21at 10:00; Start 08/02/21 at 10:00; Stop 08/02/21 at 10:07; Status DC Fentanyl Citrate (Fentanyl 2ml Vial) 100 mcg 1X ONCE IV Last administered on 08/02/21at 10:00; Start 08/02/21 at 10:00; Stop 08/02/21 at 10:07; Status DC Iohexol (Omnipaque 350 Mg/ml) 100 ml 1X ONCE IART Last administered on 08/02/21at 10:00; Start 08/02/21 at 10:00; Stop 08/02/21 at 10:07; Status DC Lidocaine HCl (Lidocaine 1% 20ml Vial) 20 ml 1X ONCE INJ Last administered on 08/02/21at 10:00; Start 08/02/21 at 10:00; Stop 08/02/21 at 10:07; Status DC Lidocaine HCl (Xylocaine-Mpf 1% 2ml Vial) 2 ml 1X ONCE INJ Last administered on 08/02/21at 10:00; Start 08/02/21 at 10:00; Stop 08/02/21 at 10:07; Status DC Lidocaine/ Epinephrine (LIDOCAINE 2%-EPI 1:100,000 multi-dose) 20 ml STK-MED ONCE .ROUTE ; Start 08/02/21 at 10:04; Stop 08/02/21 at 10:04; Status DC Tirofiban/Sodium Chloride 100 ml @ As Directed STK-MED ONCE IV ; Start 08/02/21 at 10:04; Stop 08/02/21 at 10:04; Status DC Info (CONTRAST GIVEN -- Rx MONITORING) 1 each PRN DAILY PRN MC SEE COMMENTS; Start 08/02/21 at 10:15; Stop 08/04/21 at 10:14; Status DC Heparin Sodium (Porcine) (Heparin Sodium) 5,000 unit 1X ONCE IVP Last administered on 08/02/21at 10:15; Start 08/02/21 at 10:15; Stop 08/02/21 at 10:16; Status DC Tirofiban/Sodium Chloride 100 ml @ 0 mls/hr CONT PRN IV PER PROTOCOL Last administered on 08/02/21at 11:09; Start 08/02/21 at 10:15; Stop 08/03/21 at 04:14; Status DC Midazolam HCl (Versed) 2 mg STK-MED ONCE .ROUTE ; Start 08/02/21 at 10:17; Stop 08/02/21 at 10:17; Status DC Nitroglycerin (Nitroglycerin) 200 mcg STK-MED ONCE .ROUTE ; Start 08/02/21 at 10:21; Stop 08/02/21 at 10:21; Status DC Prasugrel (Effient) 60 mg 1X PO Last administered on 08/02/21at 10:44; Start 08/02/21 at 10:45; Stop 08/02/21 at 10:44; Status DC Prasugrel (Effient) 60 mg 1X ONCE PO Last administered on 08/02/21at 10:45; Start 08/02/21 at 10:45; Stop 08/02/21 at 10:46; Status DC Prasugrel (Effient) 10 mg STK-MED ONCE .ROUTE ; Start 08/02/21 at 10:44; Stop 08/02/21 at 10:44; Status DC Tirofiban/Sodium Chloride 100 ml @ As Directed STK-MED ONCE IV ; Start 08/02/21 at 10:45; Stop 08/02/21 at 10:45; Status DC Hydralazine HCl (Apresoline) 20 mg 1X ONCE PO ; Start 08/02/21 at 12:00; Stop 08/02/21 at 12:01; Status DC Nitroglycerin (Nitrostat) 0.4 mg STK-MED ONCE SL ; Start 08/02/21 at 11:54; Stop 08/02/21 at 11:55; Status DC Atorvastatin Calcium (Lipitor) 40 mg QHS PO Last administered on 08/03/21at 20:16; Start 08/02/21 at 21:00 Sacubitril/ Valsartan (Entresto 49 Mg-51 Mg) 1 tab BID PO Last administered on 08/04/21at 08:50; Start 08/03/21 at 09:00 Hydralazine HCl (Apresoline Inj) 10 mg PRN Q4HRS PRN IVP ELEVATED BP, SEE COMM ENTS; Start 08/02/21 at 12:00 Amiodarone HCl (Cordarone) 400 mg DAILY PO Last administered on 08/04/21at 08:51; Start 08/03/21 at 09:00 Hydralazine HCl (Apresoline Inj) 20 mg 1X ONCE IVP Last administered on 08/02/21at 12:14; Start 08/02/21 at 12:00; Stop 08/02/21 at 12:03; Status DC Prasugrel (Effient) 10 mg DAILYWBKFT PO Last administered on 08/04/21at 08:49; Start 08/03/21 at 08:00 Morphine Sulfate (Morphine Sulfate) 2 mg 1X ONCE IVP Last administered on 08/02/21at 12:27; Start 08/02/21 at 12:30; Stop 08/02/21 at 12:31; Status DC Lorazepam (Ativan Inj) 1 mg 1X ONCE IVP Last administered on 08/02/21at 12:27; Start 08/02/21 at 12:30; Stop 08/02/21 at 12:31; Status DC Furosemide (Lasix) 40 mg 1X ONCE IVP Last administered on 08/02/21at 16:07; Start 08/02/21 at 15:30; Stop 08/02/21 at 15:31; Status DC Furosemide (Lasix) 40 mg 1X ONCE IVP ; Start 08/02/21 at 15:30; Stop 08/02/21 at 15:31; Status DC Potassium Chloride (Klor-Con) 20 meq 1X ONCE PO Last administered on 08/02/21at 16:07; Start 08/02/21 at 15:30; Stop 08/02/21 at 15:31; Status DC Throat Lozenges (Cepacol Sore Throat Lozenge) 1 felisa PRN Q2HRS PRN PO SORE THROAT Last administered on 08/02/21at 21:41; Start 08/02/21 at 20:30 Spironolactone (Aldactone) 25 mg DAILY PO Last administered on 08/04/21at 08:49; Start 08/03/21 at 09:00 Furosemide (Lasix) 40 mg 1X ONCE IVP Last administered on 08/03/21at 10:27; Start 08/03/21 at 09:45; Stop 08/03/21 at 09:46; Status DC Guaifenesin (Mucinex) 600 mg BID PO Last administered on 08/04/21at 08:49; Start 08/03/21 at 13:00 Albuterol/ Ipratropium (Duoneb) 3 ml RTQID NEB Last administered on 08/04/21at 11:37; Start 08/03/21 at 12:00 Furosemide (Lasix) 40 mg DAILY IVP Last administered on 08/04/21at 08:49; Start 08/03/21 at 17:00 Active Scripts Active Reported Artificial Tears Drops (Peg 400/Hypromellose/Glycerin) 15 Ml Drops 1 Drop OS QID 30 Days One-Daily Multi-Vitamin (Multivitamin) 1 Each Tablet 1 Tab PO DAILY 30 Days Metformin Hcl 1,000 Mg Tablet 1,000 Mg PO BIDWMEALS Clonidine Hcl 0.2 Mg Tablet 1 Tab PO BID Terazosin Hcl 1 Mg Capsule 1 Mg PO HS Spironolactone 25 Mg Tablet 1 Tab PO DAILY Potassium Chloride (Potassium Chloride) 20 Meq Tablet.er 40 Meq PO BID Spiriva (Tiotropium [place]) 18 Mcg Cap.w.dev 2 Inh IH DAILY Metoprolol Tartrate 25 Mg Tablet 1 Tab PO 1X Toprol XL (Metoprolol Succinate) 50 Mg Tab.er.24h 50 Mg PO DAILY Latanoprost 0.005% Eye Drop (Latanoprost/Pf) 7.5 Ml Drops 1 Drop OU QHS Losartan Potassium 50 Mg Tablet 50 Mg PO DAILY Furosemide 40 Mg Tablet 1 Tab IVP DAILY Cosopt Pf Eye Drops (Dorzolamide/Timolol/Pf) 1 Each Droperette 1 Drop EACHEYE BID 30 Days Celexa (Citalopram Hydrobromide) 20 Mg Tablet 1 Tab PO DAILY Lipitor (Atorvastatin Calcium) 20 Mg Tablet 20 Mg PO HS Aspirin 81 Mg Tab.chew 1 Tab PO DAILY Albuterol Sulfate Conc Neb Soln (Albuterol Sulfate) 2.5 Mg/0.5 Ml Vial.neb 1 Vial NEB Q6HRS PRN Allergies Allergies: Coded Allergies: No Known Allergies (Verified Allergy, Unknown, 08/01/21) Physical Exam General: Alert, Oriented X3 HEENT: Atraumatic, PERRLA, Other (No palpable mass or thyromegaly in the neck) Lungs: Clear to auscultation Heart: Regular rate, Normal S1 Abdomen: Normal bowel sounds, Soft, No tenderness, No hepatosplenomegaly Extremities: No clubbing, No cyanosis Neuro: Normal speech Psych/Mental Status: Mental status NL Vitals VITALS Vital Signs Date Time Temp Pulse Resp B/P (MAP) Pulse Ox O2 Delivery O2 Flow Rate FiO2 08/04/21 14:26 98.2 80 20 141/63 (89) 93 Room Air 98.2 08/04/21 11:25 3.0 Labs Labs Laboratory Tests Test 08/02/21 16:39 08/02/21 21:38 08/03/21 06:05 08/03/21 07:36 Glucose (Fingerstick) 190 mg/dL (70-99) 127 mg/dL (70-99) 184 mg/dL (70-99) White Blood Count 12.4 x10^3/uL (4.0-11.0) Red Blood Count 3.99 x10^6/uL (4.30-5.70) Hemoglobin 12.4 g/dL (13.0-17.5) Hematocrit 36.6 % (39.0-53.0) Mean Corpuscular Volume 92 fL (79-100) Mean Corpuscular Hemoglobin 31 pg (25-35) Mean Corpuscular Hemoglobin Concent 34 g/dL (31-37) Red Cell Distribution Width 14.7 % (11.5-14.5) Platelet Count 232 x10^3/uL (140-400) Sodium Level 140 mmol/L (136-145) Potassium Level 3.2 mmol/L (3.5-5.1) Chloride Level 103 mmol/L (98-107) Carbon Dioxide Level 26 mmol/L (21-32) Anion Gap 11 (6-14) Blood Urea Nitrogen 15 mg/dL (8-26) Creatinine 1.0 mg/dL (0.7-1.3) Estimated GFR (Cockcroft-Gault) 75.7 BUN/Creatinine Ratio 15 (6-20) Glucose Level 148 mg/dL (70-99) Calcium Level 8.1 mg/dL (8.5-10.1) Magnesium Level 2.0 mg/dL (1.8-2.4) Total Bilirubin 2.3 mg/dL (0.2-1.0) Aspartate Amino Transf (AST/SGOT) 24 U/L (15-37) Alanine Aminotransferase (ALT/SGPT) 52 U/L (16-63) Alkaline Phosphatase 60 U/L (46-116) Total Protein 6.9 g/dL (6.4-8.2) Albumin 3.2 g/dL (3.4-5.0) Albumin/Globulin Ratio 0.9 (1.0-1.7) Test 08/03/21 11:42 08/03/21 16:50 08/03/21 20:14 08/04/21 04:00 Glucose (Fingerstick) 197 mg/dL (70-99) 159 mg/dL (70-99) 165 mg/dL (70-99) Sodium Level 138 mmol/L (136-145) Potassium Level 3.5 mmol/L (3.5-5.1) Chloride Level 102 mmol/L (98-107) Carbon Dioxide Level 26 mmol/L (21-32) Anion Gap 10 (6-14) Blood Urea Nitrogen 15 mg/dL (8-26) Creatinine 0.9 mg/dL (0.7-1.3) Estimated GFR (Cockcroft-Gault) 85.5 Glucose Level 157 mg/dL (70-99) Calcium Level 7.8 mg/dL (8.5-10.1) Magnesium Level 2.0 mg/dL (1.8-2.4) TD-Pmq-[id number]-Type Natriuretic Peptide 1594 pg/mL (0-124) Test 08/04/21 06:57 08/04/21 11:06 Glucose (Fingerstick) 158 mg/dL (70-99) 183 mg/dL (70-99) Laboratory Tests Test 08/03/21 16:50 08/03/21 20:14 08/04/21 04:00 08/04/21 06:57 Glucose (Fingerstick) 159 mg/dL (70-99) 165 mg/dL (70-99) 158 mg/dL (70-99) Sodium Level 138 mmol/L (136-145) Potassium Level 3.5 mmol/L (3.5-5.1) Chloride Level 102 mmol/L (98-107) Carbon Dioxide Level 26 mmol/L (21-32) Anion Gap 10 (6-14) Blood Urea Nitrogen 15 mg/dL (8-26) Creatinine 0.9 mg/dL (0.7-1.3) Estimated GFR (Cockcroft-Gault) 85.5 Glucose Level 157 mg/dL (70-99) Calcium Level 7.8 mg/dL (8.5-10.1) Magnesium Level 2.0 mg/dL (1.8-2.4) GW-Cdl-D-Type Natriuretic Peptide 1594 pg/mL (0-124) Test 08/04/21 11:06 Glucose (Fingerstick) 183 mg/dL (70-99) Images Images CT neck Impression: 1. Mild symmetric fullness of the lingual tonsils, nonspecific, likely reactive. 2. No discrete mass of the visualized aerodigestive tract. 3. Small amount of frothy material within the visualized upper esophagus suggestive of reflux esophagitis and/or delayed motility. GI consultation may be considered. Assessment/Plan Assessment/Plan Neck fullness, globus sensation. This seem to start recently and may have been related to his recent cardiopulmonary symptoms. He denies a chronic history of similar symptoms. He does describe a history of mucus drainage causing some throat irritation but did not ever give him the symptoms. He also denies a history of acid reflux or heartburn symptoms but denies prior EGD or further work-up to exclude that possibility. He does describe intermittent hoarseness which has not been evaluated. He is an ex-smoker, quit 13 years ago. Because of the symptoms CT scan of the neck was performed and revealed some very minimal reactive changes in the lingual tonsils but no other mass or i nflammation was noted. Curiously they noted some frothy material in the proximal esophagus and were not sure if this might reflect occult reflux. Plan: Is likely these events recently may have triggered some reflux or other triggers that would cause local irritation in his throat. Because of the possibility that he may have silent reflux particularly with his history of intermittent hoarseness, I would recommend an aggressive antireflux regimen presently and monitor his response. It will be primarily to see if his neck symptoms improve since he does not have classic heartburn. If his symptoms dramatically worsen such that there is concern about airway integrity then I would recommend an urgent ENT evaluation. The symptoms do not warrant EGD at this time and because of his recent non-STEMI, elective endoscopy is not warranted however in the future it may be prudent to consider an endoscopy to evaluate these possibilities. GERONIMO JOLLEY MD Aug 04, 2021 15:05
[2021-08-04] MEDS ORDERED: PANTOPRAZOLE 40 MG TABLET.DR. PO SCH (16:00)
--- NOTE | 2021-08-04 16:05 | PDOC ---
CARDIOLOGY PROGRESS NOTE SUBJECTIVE: Denies any chest pain. Breathing is much better. No syncope or palpitations. maintaining SR> OBJECTIVE: Vital Signs/I&O: Vital Signs Date Time Temp Pulse Resp B/P (MAP) Pulse Ox O2 Delivery O2 Flow Rate FiO2 08/04/21 15:31 Room Air 08/04/21 14:26 98.2 80 20 141/63 (89) 93 98.2 08/04/21 11:25 3.0 I & O 08/03/21 08/03/21 08/04/21 14:59 22:59 06:59 Intake Total 478 ml 500 ml 700 ml Output Total 300 ml 1250 ml 300 ml Balance 178 ml -750 ml 400 ml Objective: GEN.: No apparent distress. Alert and oriented. HEENT: Head is normocephalic, atraumatic NECK: Supple. LUNGS: Clear to auscultation. HEART: RRR, S1, S2 present. Peripheral pulses intact ABDOMEN: Soft, nontender. Positive bowel sounds. EXTREMITIES: Without any cyanosis. NEUROLOGIC: Normal speech, normal tone PSYCHIATRIC: Normal affect, normal mood. SKIN: No ulcerations CURRENT MEDICATIONS: Current Medications Medications (Trade) Dose Ordered Sig/Fran Route PRN Reason Start Time Stop Time Status Last Admin Dose Admin Furosemide (Lasix) 40 mg DAILY IVP 08/03/21 17:00 08/04/21 08:49 DIAGNOSTIC TESTING: Labs: Laboratory Tests 08/04/21 04:00 Laboratory Tests Test 08/03/21 16:50 08/03/21 20:14 08/04/21 04:00 08/04/21 06:57 Glucose (Fingerstick) 159 mg/dL (70-99) H 165 mg/dL (70-99) H 158 mg/dL (70-99) H Sodium Level 138 mmol/L (136-145) Potassium Level 3.5 mmol/L (3.5-5.1) Chloride Level 102 mmol/L (98-107) Carbon Dioxide Level 26 mmol/L (21-32) Anion Gap 10 (6-14) Blood Urea Nitrogen 15 mg/dL (8-26) Creatinine 0.9 mg/dL (0.7-1.3) Estimated GFR (Cockcroft-Gault) 85.5 Glucose Level 157 mg/dL (70-99) H Calcium Level 7.8 mg/dL (8.5-10.1) L Test 08/04/21 11:06 Glucose (Fingerstick) 183 mg/dL (70-99) H ASSESSMENT: 1. Acute respiratory failure with acute CHF and AE COPD 2. Acute on chronic systolic CHF 3. ICM; EF at 40% 4. Arrhythmia; EKG shows SR with RBBB and multifocal PVC's and PAC's. No AFIB noted. Continue to have frequent PVC's, PAC's 5. NSTEMI: S/P PCIDES to RCA 6. Hypertension; controlled 7. H/o Manolo-Danlos syndrome 8. Hypokalemia 9. Dysphonia: chronic? per PCP PLAN: 1. Continue asa, prasugrel, Toprol XL, amiodarone, entresto, spironolactone. Use lasix 40mg prn for edema. 2. Supportive care with close outpt f/u. Thanks Justicifation of Admission Dx: Justifications for Admission: Justification of Admission Dx: Yes LESLEE LIMA MD Aug 04, 2021 16:05
--- NOTE | 2021-08-04 16:30 | NUR ---
Discharge Note: SILVANO WALKER Discharge instructions and discharge home medications reviewed with Patient and a copy given. All questions have been answered and understanding verbalized. The following instructions and handouts were given: Prasugrel, Entresto, Lipitor, Amlodipine, Pantoprazole, Radial Site care, Post cardiac cathertization. Patient discharged to home with self care via wheelchair.
[2021-08-04] MEDS ORDERED: FAMOTIDINE 20 MG TABLET. PO SCH (21:00)
== END 2021-08-04 16:30 | disposition home or self-care (01) | DRG 246 ==
LOC: 6 SOUTH 20:20
PROVIDERS: ADMIT Internal Medicine; ATTEND Internal Medicine
PROC: 027034Z Dilation of Coronary Artery, One Artery with Drug-eluting Intraluminal Device, Percutaneous Approach (ICD-10-PCS; principal; 2021-08-02)
PROC: 4A023N8 Measurement of Cardiac Sampling and Pressure, Bilateral, Percutaneous Approach (ICD-10-PCS; 2021-08-02)
PROC: B2111ZZ Fluoroscopy of Multiple Coronary Arteries using Low Osmolar Contrast (ICD-10-PCS; 2021-08-02)
PROC: 5A09357 Assistance with Respiratory Ventilation, Less than 24 Consecutive Hours, Continuous Positive Airway Pressure (ICD-10-PCS; 2021-08-02)
PROC: 5A09357 Assistance with Respiratory Ventilation, Less than 24 Consecutive Hours, Continuous Positive Airway Pressure (ICD-10-PCS; 2021-08-04)
DX: I21.4 Non-ST elevation (NSTEMI) myocardial infarction (principal); I50.23 Acute on chronic systolic (congestive) heart failure; J96.01 Acute respiratory failure with hypoxia; J98.11 Atelectasis; Q79.60 Ehlers-Danlos syndrome, unspecified; I42.8 Other cardiomyopathies; E11.9 Type 2 diabetes mellitus without complications; E78.5 Hyperlipidemia, unspecified; E87.6 Hypokalemia; F45.8 Other somatoform disorders; I11.0 Hypertensive heart disease with heart failure; I25.10 Atherosclerotic heart disease of native coronary artery without angina pectoris; I25.5 Ischemic cardiomyopathy; I27.20 Pulmonary hypertension, unspecified; I45.10 Unspecified right bundle-branch block; I49.1 Atrial premature depolarization; J43.9 Emphysema, unspecified; N40.0 Benign prostatic hyperplasia without lower urinary tract symptoms; Z79.02 Long term (current) use of antithrombotics/antiplatelets; Z82.49 Family history of ischemic heart disease and other diseases of the circulatory system; Z82.5 Family history of asthma and other chronic lower respiratory diseases; Z87.891 Personal history of nicotine dependence; Z98.61 Coronary angioplasty status; G47.33 Obstructive sleep apnea (adult) (pediatric)
CPT/HCPCS: 36415; 37252; 70490; 71045; 80048; 80053; 82962; 83735; 83880; 85027; 92928; 93005; 93460; 94618; 94640; 94760; 99152; 99153; C1753; C1773; C1874; C1894; J0282; J0360; J1644; J1815; J1940; J2060; J2250; J2270; J3010; J3490; J7060; Q9967; 97110-GP; C1725; G0378; J3246; J7613

== ENCOUNTER 2021-08-11 04:24 | Inpatient (IN) | payer BC ==
[2021-08-11] VITALS (7 sets, daily range): BP systolic 119–163; BP diastolic 54–84
[~2021-08-11] VITALS: Ht 188 cm; Wt 113.5 kg
[~2021-08-11 04:24] MED LIST: ALBU2.5V14 NEB; AMIO400T5 PO; ASPI-630 PO; ATOR20TA PO; ATOR40TA59 PO; CITA20TA9 PO; CLON0.2T PO; DORZ1DRO5 EACHEYE; FURO40TA4 IVP; LATA7.5D OU; LOSA-73 PO; METF10007 PO; METO25TA4 PO; METO50TA4 PO; MULT-735 PO; PANT40TA77 PO; PEG15DRO4 OS; POTA20TA4 PO; PRAS10TA9 PO; SACU1TAB7 PO; SPIR25TA5 PO; TERA1CAP3 PO; TIOT18CA IH
--- NOTE | 2021-08-11 06:50 | NUR ---
Admission Note: Patient admitted for SOB and increased troponin from [facility] by Dr. Bedolla. Patient is A&O x4 and reports no pain at this time. Vital signs stable at this time. SpO2 above 90% with NC at 10L. Patient has 20g right hand. Patient is oriented to room and call kirby. Bed in lowest position with HOB elevated and call kirby in reach. Patient on isolation for pending COVID test. Patient has received two COVID vaccine.
[2021-08-11] MEDS ORDERED: POTA-121 PO (07:31)
--- NOTE | 2021-08-11 08:03 | PDOC1 ---
History and Physical Date of Service: DOS: DATE: 08/11/21 TIME: 08:00 Chief Complaint: Chief Complain: Shortness of breath History of Present Illness: HPI: 60-year-old male with past medical history of diabetes mellitus type 2, hypertension, dyslipidemia, BPH, who presents with shortness of breath for the past 3 days since he was discharged from the hospital at [facility]. He was apparently seen in discharge with inhalers and furosemide. He also endorses lower extremity swelling as well. Past Medical/Surgical History: PMH/PSH: PAST MEDICAL HISTORY: type 2 diabetes mellitus, hypertension, hyperlipidemia, benign prostatic hypertrophy. 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 PAST SURGICAL HISTORY: Significant for YAG laser capsulotomy, both eyes; endoscopic sinus surgery, oral surgery to remove a growth on the tongue on 11/23/2015. He underwent cardiac catheterization on 12/11/2004. His aorta is about 30% thick. He has had retinal detachment to the right eye on 12/28/2014. He has cataract in the left eye, removed and he also underwent arthroscopic right knee surgery and carpal tunnel release. Allergies: Allergies: Coded Allergies: No Known Allergies (Verified Allergy, Unknown, 08/01/21) Family History: Family History: CHF in the father COPD in the father. History of TIAs in the mother Social History: Social History: Former smoker, used to smoke 2 packs a day for most 30 years. Current Medications: Current Medications Active Scripts Active Protonix (Pantoprazole Sodium) 40 Mg Tablet.dr 40 Mg PO DAILYAC 30 Days Atorvastatin Calcium 40 Mg Tablet 1 Tab PO DAILY 30 Days Entresto 49 mg-51 mg Tablet (Sacubitril/Valsartan) 1 Each Tablet 1 Each PO BID 30 Days Effient (Prasugrel Hcl) 10 Mg Tablet 1 Tab PO DAILY 30 Days Amiodarone Hcl 400 Mg Tablet 1 Tab PO DAILY 30 Days Reported Klor-Con M20 (Potassium Chloride) 20 Meq Tab.er.prt 40 Meq PO BID Artificial Tears Drops (Peg 400/Hypromellose/Glycerin) 15 Ml Drops 1 Drop OS QID 30 Days One-Daily Multi-Vitamin (Multivitamin) 1 Each Tablet 1 Tab PO DAILY 30 Days Metformin Hcl 1,000 Mg Tablet 1,000 Mg PO BIDWMEALS Clonidine Hcl 0.2 Mg Tablet 1 Tab PO BID Terazosin Hcl 1 Mg Capsule 1 Mg PO HS Spironolactone 25 Mg Tablet 1 Tab PO DAILY Spiriva (Tiotropium [place]) 18 Mcg Cap.w.dev 2 Inh IH DAILY Toprol XL (Metoprolol Succinate) 50 Mg Tab.er.24h 50 Mg PO DAILY Latanoprost 0.005% Eye Drop (Latanoprost/Pf) 7.5 Ml Drops 1 Drop OU QHS Furosemide 40 Mg Tablet 1 Tab IVP DAILY Cosopt Pf Eye Drops (Dorzolamide/Timolol/Pf) 1 Each Droperette 1 Drop EACHEYE BID 30 Days Celexa (Citalopram Hydrobromide) 20 Mg Tablet 1 Tab PO DAILY Aspirin 81 Mg Tab.chew 1 Tab PO DAILY Albuterol Sulfate Conc Neb Soln (Albuterol Sulfate) 2.5 Mg/0.5 Ml Vial.neb 1 Vial NEB Q6HRS PRN ROS: Review of Systems Review of System REVIEW OF SYSTEMS: GENERAL: Denies weakness SKIN: No bruising, hair changes or rashes. EYES: No blurred, double or loss of vision. NOSE AND THROAT: No history of nosebleeds, hoarseness or sore throat. HEART: No history of palpitations, chest pain or shortness of breath on exertion. LUNGS: Denies cough, hemoptysis, wheezing or shortness of breath. GASTROINTESTINAL: Denies changes in appetite, nausea, vomiting, diarrhea or constipation. GENITOURINARY: No history of frequency, urgency, hesitancy or nocturia. NEUROLOGIC: Denies history of numbness, tingling, or tremor. PSYCHIATRIC: No history of panic, anxiety or depression. ENDOCRINE: No history of heat or cold intolerance, polyuria or polydipsia. EXTREMITIES: Denies joint pain, pain on walking or stiffness. Physical Exam: Vital Signs: Vital Signs Date Time Temp Pulse Resp B/P (MAP) Pulse Ox O2 Delivery O2 Flow Rate FiO2 08/11/21 07:00 98.0 60 20 119/54 (75) 93 Nasal Cannula 10.0 98.0 Physcial Exam: General: Well developed, well nourished, no acute distress, well appearing HEENT: Pupils equally round and reactive to light, EOMI, no discharge, normal conjunctiva Neck: Supple, no nuchal rigidity, no JVD, trachea midline, no tenderness Cardiac: RRR, no murmurs, no gallops, no rubs Chest/Lungs: CTAB, no wheeze, no rhonchi, no crackles Abdomen: soft, non-distended, no guarding, no peritoneal signs, non-tender Back: No tenderness Extremities: no edema, pulses intact, non-tender,capillary refill <3 sec bilateral upper and lower extremities, Neuro: Alert and oriented x 4, no focal deficits, normal speech Labs: Labs: Pending repeat labs. Fabian's labs significant for BNP of 2974, creatinine of 1.4, troponin 0 0.044, lactic acid of 3.4 Images: Images Pending repeat chest x-ray Assessment/Plan Assessment/Plan Acute hypoxic respiratory failure Acute on chronic CHF exacerbation, echo recently showed LVEF of 40% Acute on chronic COPD exacerbation Mixed ischemic and nonischemic cardiomyopathy History of CAD with stents most recent stent in the RCA completed on 08/02/2021 Mild troponin elevation. History of hypertension History of Manolo-Danlos syndrome. Admit to ICU for further management Strict I's and O's Monitor urine output IV 40 mg Lasix daily as needed Pulmonology consult Continue breathing treatments when Covid PCR is negative O2 supplementation to maintain O2 saturations between 88 to 92% Start IV Solu-Medrol Goal-directed management Resume cardioprotective home medications Lovenox for DVT prophylaxis Protonix while on steroids GI prophylaxis ADA diet CODE STATUS FULL Discussed with RN and SW Disposition ICU care DPOA: A total of 55 minutes of critical care time was spent in reviewing chart, labs, and images. Discussed with RN and SW. In addition to my E/M visit, advance care planning done with A total time of 20 minutes was spent from 9:00 to 920 face to face in discussion regarding the patient's goals of care, CODE STATUS. Justifications for Admission Other Justification EMELIA OCONNOR MD Aug 11, 2021 08:03
[2021-08-11] MEDS ORDERED: ACETAMINOPHEN 325 MG TABLET. PO PRN ×2 (08:15→10:30)
[2021-08-11] MEDS ORDERED: PROCHLORPERAZINE 10 MG/2 ML VIAL. IV PRN ×2 (08:15→10:30)
[2021-08-11] MEDS ORDERED: SENNOSIDES 8.6 MG TABLET PO PRN ×2 (08:15→10:30)
[2021-08-11] MEDS ORDERED: ONDANSETRON PF 4 MG/2 ML VIAL. IVP PRN ×2 (08:15→10:30)
[2021-08-11] MEDS ORDERED: DOCUSATE SODIUM 100 MG CAPSULE. PO PRN ×2 (08:15→10:30)
[2021-08-11] MEDS ORDERED: LORazepam 0.5 MG TABLET PO PRN ×2 (08:15→10:30)
[2021-08-11] MEDS ORDERED: ZOLPIDEM 5 MG TABLET. PO PRN ×2 (08:15→10:30)
[2021-08-11] MEDS ORDERED: DEXTROSE 50% 25 GM / 50ML DISP.SYRIN. IV PRN ×2 (08:15→10:30)
[2021-08-11] MEDS: ENOXAPARIN 40 MG/0.4 ML SYRINGE. SQ SCH (09:00)
[2021-08-11] MEDS ORDERED: FUROSEMIDE 40 MG/4 ML VIAL. IVP ONE (09:45)
--- NOTE | 2021-08-11 11:08 | RAD ---
AP chest. HISTORY: CHF exacerbation AP view was taken of the chest. Heart is upper normal in size. Comparison is made with a study from anth[facility] 15. There has been been a mild improvement in the right basilar hazy infiltrate or edema. No n ew infiltrates are noted. There is still mild vascular congestion. IMPRESSION: 1. Mild improvement in hazy infiltrates or edema. 2. Little other change. Electronically signed by: Ezekiel Curran MD (08/11/2021 11:06 AM) [facility]
[2021-08-11] MEDS: DORZOLAMIDE 2% OPHTH SOLUTION 10ML BOTTLE. OU SCH ×2 (11:30→21:00)
[2021-08-11] MEDS: TIMOLOL 0.5% OPHTH SOLUTION 5ML BOTTLE. OU SCH ×2 (11:30→21:00)
[2021-08-11] MEDS: MULTIVITAMIN with MINERAL TABLET. PO SCH (11:33)
[2021-08-11] MEDS: ASPIRIN CHEWABLE 81 MG TABLET. PO SCH (11:33)
[2021-08-11] MEDS: cloNIDine HCL 0.2 MG TABLET PO SCH ×2 (11:33→21:13)
[2021-08-11] MEDS: AMIODARONE HCL 200 MG TABLET. PO SCH (11:34)
[2021-08-11] MEDS: METOPROLOL SUCC 24HR ER 50 MG TAB.ER.24H. PO SCH (11:34)
[2021-08-11] MEDS: PANTOPRAZOLE 40 MG TABLET.DR. PO SCH (11:34)
[2021-08-11] MEDS: SPIRONOLACTONE 25 MG TABLET PO SCH (11:34)
[2021-08-11] MEDS: CITALOPRAM 20 MG TABLET. PO SCH (11:34)
[2021-08-11] MEDS: methylPREDNISolone SOD SUCC PF 40 MG/ML VIAL. IV SCH ×3 (11:35→23:57)
[2021-08-11] MEDS: PRASUGREL 10 MG TABLET. PO SCH (11:35)
[2021-08-11] MEDS ORDERED: INSULIN LISPRO 300 UNITS/3 ML VIAL. SQ SCH (12:00)
[2021-08-11] MEDS: IPRATRPIUM/ALBUTEROL 0.5/2.5MG 3 ML NEBU. NEB SCH ×3 (12:00→20:00)
[2021-08-11] MEDS ORDERED: IPRATRPIUM/ALBUTEROL 0.5/2.5MG 3 ML NEBU. NEB SCH (12:00)
[2021-08-11] MEDS: INSULIN LISPRO 300 UNITS/3 ML VIAL. SQ SCH ×2 (12:35→17:55)
[2021-08-11] MEDS: POLYVINYL ALCOHOL 1.4% OPHTH SOLUTION 15ML BOTTLE. OS SCH ×3 (13:00→21:00)
[2021-08-11 13:03] LABS: CALCIUM 8.3 mg/dL (8.5-10.1); CREATININE 1.2 mg/dL (0.7-1.3); GFR 61.3; POTASSIUM 3.8 mmol/L (3.5-5.1)
--- NOTE | 2021-08-11 13:18 | PDOC2 ---
CARDIOLOGY CONSULT NOTE DATE OF SERVICE: DATE: 08/11/21 TIME: 13:18 CHIEF COMPLAINT: SOA HPI: Mr. Corea is a pleasant 60-year-old man who is well-known to our service who recently underwent PCI of the RCA presents to the hospital in the setting of worsening heart failure symptoms. He has known ischemic cardiomyopathy with an ejection fraction of 40 to 45%. He was discharged on goal-directed medical therapy but returns due to worsening heart failure symptoms. When he arrived at [facility] he was noted to be significantly hypertensive with systolic blood pressure greater than 200. His EKG was nonischemic. He was then admitted to the hospital. Since admission and diur esis he feels better. He denies any angina today but does feel like he still is volume overloaded. He reports compliance with his medications PMHX: 1. Coronary artery disease status post PCI to the RCA 2. Ischemic cardiomyopathy SOCHX: No alcohol, tobacco or illicit drug use FAMHX: Noncontributory CURRENT MEDS: Current Medications Medications (Trade) Dose Ordered Sig/Fran Route PRN Reason Start Time Stop Time Status Last Admin Dose Admin Insulin Human Lispro (HumaLOG) 0-7 UNITS TIDWMEALS SQ 08/11/21 12:00 08/11/21 12:35 Enoxaparin Sodium (Lovenox 40mg Syringe) 40 mg Q24H SQ 08/11/21 09:00 08/11/21 09:00 Furosemide (Lasix) 40 mg 1X ONCE IVP 08/11/21 09:45 08/11/21 09:46 DC 08/11/21 09:45 Methylprednisolone Sodium Succinate (SOLU-Medrol 40MG VIAL) 40 mg Q6HRS IV 08/11/21 11:00 08/11/21 11:35 Aspirin (Aspirin Chewable) 81 mg DAILY PO 08/11/21 11:00 08/11/21 11:33 Citalopram Hydrobromide (CeleXA) 20 mg DAILY PO 08/11/21 11:00 08/11/21 11:34 Clonidine HCl (Catapres) 0.2 mg BID PO 08/11/21 11:00 08/11/21 11:33 Metoprolol Succinate (Toprol Xl) 50 mg DAILY PO 08/11/21 11:00 08/11/21 11:34 Pantoprazole Sodium (Protonix) 40 mg DAILYAC PO 08/11/21 11:00 08/11/21 11:34 Prasugrel (Effient) 10 mg DAILY PO 08/11/21 11:00 08/11/21 11:35 Spironolactone (Aldactone) 25 mg DAILY PO 08/11/21 11:00 08/11/21 11:34 Amiodarone HCl (Cordarone) 400 mg DAILY PO 08/11/21 11:00 08/11/21 11:34 Multivitamins (Thera M Plus) 1 tab DAILY PO 08/11/21 11:00 08/11/21 11:33 Dorzolamide HCl (Trusopt) 1 drop BID OU 08/11/21 11:30 08/11/21 11:30 Timolol Maleate (Timoptic 0.5% Ophth) 1 drop BID OU 08/11/21 11:30 08/11/21 11:30 ALLERGIES: Allergies Coded Allergies Type Severity Reaction Last Updated Verified No Known Allergies Allergy Unknown 08/01/21 Yes ROS: Negative for 10 out of 14 systems reviewed unless otherwise mentioned above in HPI PHYSICAL EXAM: Vital Signs/I&O: Vital Signs Date Time Temp Pulse Resp B/P (MAP) Pulse Ox O2 Delivery O2 Flow Rate FiO2 08/11/21 12:00 92 Room Air 08/11/21 11:34 68 155/82 08/11/21 11:00 18 08/11/21 10:00 2.0 08/11/21 07:00 98.0 98.0 I & O 08/10/21 08/10/21 08/11/21 15:00 23:00 07:00 Intake Total 0 ml Balance 0 ml Physical Exam: GEN.: No apparent distress. Alert and oriented. HEENT: Head is normocephalic, atraumatic NECK: Supple. LUNGS: Clear to auscultation. HEART: RRR, S1, S2 present. Peripheral pulses intact ABDOMEN: Soft, nontender. Positive bowel sounds. EXTREMITIES: Without any cyanosis. 1+ edema in the bilateral lower extremities, 2+ radial pulses. NEUROLOGIC: Normal speech, normal tone PSYCHIATRIC: Normal affect, normal mood. SKIN: No ulcerations DIAGNOSTIC TESTING: Labs reviewed. Troponin minimally elevated Chest x-ray reviewed EKG reviewed ASSESSMENT: ASSESSMENT: 1. Acute respiratory failure with acute CHF due to hypertension 2. Acute on chronic systolic CHF 3. ICM; EF at 40% 4. Arrhythmia; EKG shows SR with RBBB and multifocal PVC's and PAC's. No AFIB noted. Continue to have frequent PVC's, PAC's 5. NSTEMI: S/P PCIDES to RCA 6. Hypertension; uncontrolled 7. H/o Manolo-Danlos syndrome 8. Hypokalemia improved 9. Dysphonia: chronic? per PCP PLAN: 1. Continue asa, prasugrel, Toprol XL, amiodarone, entresto, spironolactone. Use lasix 40mg prn for edema. 2. Supportive care 3. We will uptitrate Entresto for blood pressure control as necessary. LESLEE LIMA MD Aug 11, 2021 13:18
[2021-08-11] MEDS ORDERED: ATORVASTATIN CALCIUM 40 MG TABLET. PO SCH (21:00)
[2021-08-11] MEDS ORDERED: DORZOLAMIDE EACHEYE SCH (21:00)
[2021-08-11] MEDS ORDERED: LATANOPROST 0.005% OPHTH SOLUTION 2.5ML BOTTLE. OD SCH (21:00)
[2021-08-11] MEDS ORDERED: TERAZOSIN 1 MG CAPSULE. PO SCH (21:00)
[2021-08-11] MEDS ORDERED: TIMOLOL EACHEYE SCH (21:00)
[2021-08-11] MEDS: SACUBITRIL/VALSARTAN 49/51MG TABLET. PO SCH (21:13)
[2021-08-12] VITALS: BP 142/78
[2021-08-12 03:09] LABS: BASO % 0 % (0-3); EOS % 0 % (0-3); HEMATOCRIT 34.2 % (39.0-53.0); HEMOGLOBIN 11.2 g/dL (13.0-17.5); LYMPH # 1.6 x10^3/uL (1.0-4.8); LYMPH % 13 % (24-48); MEAN CORPUSCULAR HEMOGLOBIN 30 pg (25-35); MEAN CORPUSCULAR HGB CONC 33 g/dL (31-37); MEAN CORPUSCULAR VOLUME 93 fL (79-100); MONO # 0.4 x10^3/uL (0.0-1.1); MONO % 4 % (0-9); NEUT # 10.5 x10^3/uL (1.8-7.7); NEUT % 84 % (31-73); PLATELET COUNT 305 x10^3/uL (140-400); RED CELL DISTRIBUTION WIDTH 14.6 % (11.5-14.5); WHITE BLOOD COUNT 12.6 x10^3/uL (4.0-11.0)
[2021-08-12 03:21] LABS: CALCIUM 8.5 mg/dL (8.5-10.1); CREATININE 1.1 mg/dL (0.7-1.3); GFR 67.8; MAGNESIUM 1.9 mg/dL (1.8-2.4); PHOSPHORUS 3.8 mg/dL (2.6-4.7); POTASSIUM 3.7 mmol/L (3.5-5.1)
[2021-08-12 04:00] VITALS: BP 143/76
[2021-08-12] MEDS: methylPREDNISolone SOD SUCC PF 40 MG/ML VIAL. IV SCH ×2 (05:58→12:25)
[2021-08-12] MEDS: SACUBITRIL/VALSARTAN 49/51MG TABLET. PO SCH (07:27)
[2021-08-12] MEDS: SPIRONOLACTONE 25 MG TABLET PO SCH (07:27)
[2021-08-12] MEDS: PRASUGREL 10 MG TABLET. PO SCH (07:27)
[2021-08-12] MEDS: CITALOPRAM 20 MG TABLET. PO SCH (07:27)
[2021-08-12] MEDS: ASPIRIN CHEWABLE 81 MG TABLET. PO SCH (07:27)
[2021-08-12] MEDS: cloNIDine HCL 0.2 MG TABLET PO SCH (07:28)
[2021-08-12] MEDS: AMIODARONE HCL 200 MG TABLET. PO SCH (07:28)
[2021-08-12] MEDS: MULTIVITAMIN with MINERAL TABLET. PO SCH (07:28)
[2021-08-12] MEDS: PANTOPRAZOLE 40 MG TABLET.DR. PO SCH (07:28)
[2021-08-12] MEDS: ENOXAPARIN 40 MG/0.4 ML SYRINGE. SQ SCH (07:29)
[2021-08-12] MEDS: METOPROLOL SUCC 24HR ER 50 MG TAB.ER.24H. PO SCH (07:29)
[2021-08-12] MEDS: POLYVINYL ALCOHOL 1.4% OPHTH SOLUTION 15ML BOTTLE. OS SCH ×2 (07:29→13:00)
[2021-08-12] MEDS: TIMOLOL 0.5% OPHTH SOLUTION 5ML BOTTLE. OU SCH (07:29)
[2021-08-12] MEDS: DORZOLAMIDE 2% OPHTH SOLUTION 10ML BOTTLE. OU SCH (07:29)
[2021-08-12] MEDS: INSULIN LISPRO 300 UNITS/3 ML VIAL. SQ SCH ×2 (07:40→12:26)
[2021-08-12 08:00] VITALS: BP 145/72
[2021-08-12] MEDS: IPRATRPIUM/ALBUTEROL 0.5/2.5MG 3 ML NEBU. NEB SCH ×2 (08:00→12:10)
[2021-08-12] MEDS ORDERED: ENOXAPARIN 30 MG/0.3 ML SYRINGE. SQ SCH (09:00)
[2021-08-12] MEDS ORDERED: NON FORMULARY ITEM (Tiotropium Bromide (Spiriva) 2 INH) IH SCH (09:00)
[2021-08-12] MEDS ORDERED: FURO40TA4 IVP (11:20)
--- NOTE | 2021-08-12 11:24 | DISCH ---
DISCHARGE INSTRUCTIONS Condition on Discharge Condition on Discharge: Stable Activity After Discharge Activity Instructions for Disc: Activity as tolerated Lifting Instructions after Dis: No pulling or pushing, Do not lift >10 pounds Diet after Discharge Diet after Discharge: Cardiac Diet Texture: Regular Liquid Texture: Thin Liquid Wound Incision Care Wound/Incision Care: No wound care needed Checks after Discharge Checks after discharge: Check blood press - daily, Check blood sugar, ac/hs, Check your Temp as needed Follow-Up Follow up with: PCP within 2 weeks of discharge Follow Up With: Cardiology as needed or as scheduled Treatment/Equipment after DC Adaptive Equipment Issued: None EMELIA OCONNOR MD Aug 12, 2021 11:24
[2021-08-12] MEDS ORDERED: POTASSIUM CHLORIDE 20 MEQ TABLET.ER. PO ONE (12:30)
[2021-08-12] MEDS ORDERED: FUROSEMIDE 40 MG/4 ML VIAL. IVP ONE (12:30)
--- NOTE | 2021-08-12 12:37 | PDOC ---
CARDIOLOGY PROGRESS NOTE SUBJECTIVE: No acute events overnight. No chest pain. No orthopnea or PND. It is unclear what caused this patient's initial decompensation. Reviewing his weights, BP's and medication compliance, he was actually losing weight and BP's at home were well controlled. He did though come in with high BP's. ?hypoxia versus anxiety (less likely) OBJECTIVE: Vital Signs/I&O: Vital Signs Date Time Temp Pulse Resp B/P (MAP) Pulse Ox O2 Delivery O2 Flow Rate FiO2 08/12/21 12:10 95 Room Air 08/12/21 08:00 98.1 65 18 145/72 (96) 98.1 08/12/21 04:00 15.0 I & O 08/11/21 08/11/21 08/12/21 15:00 23:00 07:00 Intake Total 600 ml 600 ml 300 ml Output Total 1000 ml 550 ml 400 ml Balance -400 ml 50 ml -100 ml Objective: GEN.: No apparent distress. Alert and oriented. HEENT: Head is normocephalic, atraumatic NECK: Supple. LUNGS: Clear to auscultation. HEART: RRR, S1, S2 present. Peripheral pulses intact ABDOMEN: Soft, nontender. Positive bowel sounds. EXTREMITIES: Without any cyanosis. Trace edema NEUROLOGIC: Normal speech, normal tone PSYCHIATRIC: Normal affect, normal mood. SKIN: No ulcerations CURRENT MEDICATIONS: CV meds reviewed. Unchanged DIAGNOSTIC TESTING: Labs reviewed. Labs: Laboratory Tests 08/12/21 02:40 Laboratory Tests Test 08/11/21 12:33 08/11/21 17:50 08/12/21 02:40 08/12/21 07:35 Glucose (Fingerstick) 208 mg/dL (70-99) H 219 mg/dL (70-99) H 212 mg/dL (70-99) H White Blood Count 12.6 x10^3/uL (4.0-11.0) H Red Blood Count 3.70 x10^6/uL (4.30-5.70) L Hemoglobin 11.2 g/dL (13.0-17.5) L Hematocrit 34.2 % (39.0-53.0) L Mean Corpuscular Volume 93 fL (79-100) Mean Corpuscular Hemoglobin 30 pg (25-35) Mean Corpuscular Hemoglobin Concent 33 g/dL (31-37) Red Cell Distribution Width 14.6 % (11.5-14.5) H Platelet Count 305 x10^3/uL (140-400) Neutrophils (%) (Auto) 84 % (31-73) H Lymphocytes (%) (Auto) 13 % (24-48) L Monocytes (%) (Auto) 4 % (0-9) Eosinophils (%) (Auto) 0 % (0-3) Basophils (%) (Auto) 0 % (0-3) Neutrophils # (Auto) 10.5 x10^3/uL (1.8-7.7) H Lymphocytes # (Auto) 1.6 x10^3/uL (1.0-4.8) Monocytes # (Auto) 0.4 x10^3/uL (0.0-1.1) Eosinophils # (Auto) 0.0 x10^3/uL (0.0-0.7) Basophils # (Auto) 0.0 x10^3/uL (0.0-0.2) Sodium Level 138 mmol/L (136-145) Potassium Level 3.7 mmol/L (3.5-5.1) Chloride Level 102 mmol/L (98-107) Carbon Dioxide Level 27 mmol/L (21-32) Anion Gap 9 (6-14) Blood Urea Nitrogen 17 mg/dL (8-26) Creatinine 1.1 mg/dL (0.7-1.3) Estimated GFR (Cockcroft-Gault) 67.8 Glucose Level 181 mg/dL (70-99) H Calcium Level 8.5 mg/dL (8.5-10.1) Phosphorus Level 3.8 mg/dL (2.6-4.7) ASSESSMENT: 1. Ischemic CMP. 2. HTN 3. DM2 4. Dyslipidemia 5. CAD s/p PCI to the RCA. 6. Frequent PVC's and PAC's. PLAN: 1. Continue toprol XL, ASA, Prasugrel, Amiodarone, Entresto, Clonidine, Atorvastatin. 2. Continue lasix 40mg daily upon discharge. 3. Check 6 minute menard wall again. Supportive care. OK to DC later today if stable and he has f/u in 1 week in our office. Justicifation of Admission Dx: Justifications for Admission: Justification of Admission Dx: Yes LESLEE LIMA MD Aug 12, 2021 12:37
[2021-08-12 12:45] VITALS: BP 141/75
[2021-08-12] MEDS ORDERED: POTA-121 PO (13:07)
[2021-08-12] MEDS ORDERED: PRED20TA PO (13:41)
--- NOTE | 2021-08-12 14:08 | NUR ---
discharge note - patient wlaked around unit 4 times never going below 95 percent [address] room ait. dr. garcia here to witness and cleared for discharge home. patient already had f/u appt with cardiology on aug 22 and 1529. all belongings returned to [facility], discharge instructions went over with patient and by this rn. new prescriptions sent to pharmacy and discussed with patient and . patient ambulated to car, accompanied by this rn.
--- NOTE | 2021-08-15 23:21 | PDOC3 ---
[facility]-Discharge Summary Date of Admission: Date of Admission: Aug 11, 2021 Date of Discharge: Date of Discharge: Aug 12, 2021 Discharge Diagnosis: Discharge Diagnosis: Acute hypoxic respiratory failure Acute on chronic CHF exacerbation, echo recently showed LVEF of 40% Acute on chronic COPD exacerbation Mixed ischemic and nonischemic cardiomyopathy History of CAD with stents most recent stent in the RCA completed on 08/02/2021 Mild troponin elevation. History of hypertension History of Manolo-Danlos syndrome. Consults: Consults: Cardiology PLAN: 1. Continue toprol XL, ASA, Prasugrel, Amiodarone, Entresto, Clonidine, Atorvastatin. 2. Continue lasix 40mg daily upon discharge. 3. Check 6 minute menard wall again. Supportive care. OK to DC later today if stable and he has f/u in 1 week in our office. Hospital Course: Hospital Course: 60-year-old male with past medical history of diabetes mellitus type 2, hypertension, dyslipidemia, BPH, who presents with shortness of breath for the past 3 days since he was discharged from the hospital at [facility]. He was candi arently seen in discharge with inhalers and furosemide. He also endorses lower extremity swelling as well. By day of discharge, pt was clinically stable and ready for discharge. He was well diuresed with IV Lasix and evaluated by cardiology. Please see recommendations above. Rest of hospital course was uneventful Disposition: Disposition/Orders: D/C to Home Activity: Activity: Resume previous activity Diet: Diet: Cardiac Medications: Home Meds Active Scripts Prednisone (PREDNISONE) 20 Mg Tablet, 1 TAB PO DAILY for copd exacerbation for 5 Days, #5 TAB Prov:EMELIA OCONNOR MD 08/12/21 Potassium Chloride (KLOR-CON M20) 20 Meq Tab.er.prt, 1 TAB PO DAILY for on lasix therapy for 30 Days, #30 TAB 2 Refills Prov:EMELIA OCONNOR MD 08/12/21 Furosemide (FUROSEMIDE) 40 Mg Tablet, 1 TAB IVP DAILY for edema for 30 Days, #30 TAB 5 Refills Prov:EMELIA OCONNOR MD 08/12/21 Pantoprazole Sodium (PROTONIX ) 40 Mg Tablet.dr, 40 MG PO DAILYAC for GERD for 30 Days, #30 TAB 5 Refills Prov:SUPRIYA REID MD 08/04/21 Atorvastatin Calcium (ATORVASTATIN CALCIUM) 40 Mg Tablet, 1 TAB PO DAILY for hld for 30 Days, #30 TAB 5 Refills Prov:SUPRIYA REID MD 08/04/21 Sacubitril/Valsartan (Entresto 49 mg-51 mg Tablet) 1 Each Tablet, 1 EACH PO BID for icm for 30 Days, #60 TAB 5 Refills Prov:SUPRIYA REID MD 08/04/21 Prasugrel Hcl (EFFIENT) 10 Mg Tablet, 1 TAB PO DAILY for cad for 30 Days, #30 TAB 5 Refills Prov:SUPRIYA REID MD 08/04/21 Amiodarone Hcl (AMIODARONE HCL) 400 Mg Tablet, 1 TAB PO DAILY for V tach for 30 Days, #30 TAB 5 Refills Prov:SUPRIYA REID MD 08/04/21 Reported Medications Peg 400/Hypromellose/Glycerin (ARTIFICIAL TEARS DROPS) 15 Ml Drops, 1 DROP OS QID for for 30 Days, #15 ML 0 Refills 08/01/21 Multivitamin (One-Daily Multi-Vitamin) 1 Each Tablet, 1 TAB PO DAILY for for 30 Days, #30 TAB 0 Refills 08/01/21 Metformin Hcl (METFORMIN HCL) 1,000 Mg Tablet, 1000 MG PO BIDWMEALS for ANTI- DIABETIC, TAB 0 Refills 08/01/21 Clonidine Hcl (CLONIDINE HCL) 0.2 Mg Tablet, 1 TAB PO BID for , #60 TAB 5 Refills 08/01/21 Terazosin Hcl (TERAZOSIN HCL) 1 Mg Capsule, 1 MG PO HS for , CAP 08/01/21 Spironolactone (SPIRONOLACTONE) 25 Mg Tablet, 1 TAB PO DAILY for , #90 TAB 1 Refill 08/01/21 Tiotropium [place] (SPIRIVA) 18 Mcg Cap.w.dev, 2 INH IH DAILY for , #1 INH 0 Refills 08/01/21 Metoprolol Succinate (Toprol XL) 50 Mg Tab.er.24h, 50 MG PO DAILY for FOR HYPERTENSION, TAB.SR 08/01/21 Latanoprost/Pf (Latanoprost 0.005% Eye Drop) 7.5 Ml Drops, 1 DROP OU QHS for GLAUCOMA, DROP 08/01/21 Dorzolamide/Timolol/Pf (COSOPT PF EYE DROPS) 1 Each Droperette, 1 DROP EACHEYE BID for for 30 Days, #60 VIAL 0 Refills 08/01/21 Citalopram Hydrobromide (CELEXA) 20 Mg Tablet, 1 TAB PO DAILY for , #90 TAB 3 Refills 08/01/21 Aspirin (ASPIRIN) 81 Mg Tab.chew, 1 TAB PO DAILY for , #30 TAB 3 Refills 08/01/21 Albuterol Sulfate (ALBUTEROL SULFATE CONC NEB SOLN) 2.5 Mg/0.5 Ml Vial.neb, 1 VIAL NEB Q6HRS PRN for SHORTNESS OF BREATH, #120 VIAL 5 Refills 08/01/21 Discontinued Reported Medications Potassium Chloride (KLOR-CON M20) 20 Meq Tab.er.prt, 40 MEQ PO BID for replacement, TAB.SR 08/11/21 Scheduled Amiodarone Hcl (Amiodarone Hcl), 1 TAB PO DAILY Aspirin (Aspirin), 1 TAB PO DAILY, (Reported) Atorvastatin Calcium (Atorvastatin Calcium), 1 TAB PO DAILY Citalopram Hydrobromide (Celexa), 1 TAB PO DAILY, (Reported) Clonidine Hcl (Clonidine Hcl), 1 TAB PO BID, (Reported) Dorzolamide/Timolol/Pf (Cosopt Pf Eye Drops), 1 DROP EACHEYE BID, (Reported) Furosemide (Furosemide), 1 TAB IVP DAILY Latanoprost/Pf (Latanoprost 0.005% Eye Drop), 1 DROP OU QHS, (Reported) Metformin Hcl (Metformin Hcl), 1,000 MG PO BIDWMEALS, (Reported) Metoprolol Succinate (Toprol XL), 50 MG PO DAILY, (Reported) Multivitamin (One-Daily Multi-Vitamin), 1 TAB PO DAILY, (Reported) Pantoprazole Sodium (Protonix ), 40 MG PO DAILYAC Peg 400/Hypromellose/Glycerin (Artificial Tears Drops), 1 DROP OS QID, (Reported) Potassium Chloride (Klor-Con M20), 1 TAB PO DAILY Prasugrel Hcl (Effient), 1 TAB PO DAILY Prednisone (Prednisone), 1 TAB PO DAILY Sacubitril/Valsartan (Entresto 49 mg-51 mg Tablet), 1 EACH PO BID Spironolactone (Spironolactone), 1 TAB PO DAILY, (Reported) Terazosin Hcl (Terazosin Hcl), 1 MG PO HS, (Reported) Tiotropium [place] (Spiriva), 2 INH IH DAILY, (Reported) Scheduled PRN Albuterol Sulfate (Albuterol Sulfate Conc Neb Soln), 1 VIAL NEB Q6HRS PRN for SHORTNESS OF BREATH, (Reported) Discontinued Medications Potassium Chloride (Klor-Con M20), 40 MEQ PO BID, (Reported) Total Time: Total Time: Total time spent was 35 minutes in preparing scripts, discharge planning with SW and RN, and preparing this discharge summary. Patient seen and examined on day of discharge. Justicifation of Admission Dx: Justifications for Admission: Justification of Admission Dx: Yes EMELIA OCONNOR MD Aug 15, 2021 23:21
--- NOTE | 2021-09-01 12:32 | DS ---
DATE OF DISCHARGE: 08/12/2021 HOSPITAL COURSE: The patient is a 60-year-old male patient who was transferred from [facility] for cardiac catheterization. He presented to the Emergency Room with a complaint of what seemed to be paroxysmal nocturnal dyspnea. He woke up with shortness of breath the day before admission and apparently he took his 's breathing treatment and the same thing happened the night before and therefore presented to the Emergency Room. He denied any chest pain. Did complain of chest pressure. Denied any radiation of the pain to the left arm or left neck. He denied any chills, rigors or fever. He does have multiple medical problems including type 2 diabetes mellitus, hypertension, emphysema. He apparently was a heavy smoker, quit smoking about 13 years ago. He used to smoke 2 packs a day and has multiple risk factors for coronary artery disease. He did undergo cardiac catheterization on 10/10/2005 and has had cardiac catheterization in 2016 about 5 years ago. At that time, his coronary arteries were normal; therefore, he was admitted with a diagnosis of acute hypoxic respiratory failure, acute on chronic systolic congestive heart failure and COPD exacerbation. His 3 cardiac enzymes were trending up. He was seen in consultation by the Cardiology team and was started on heparin drip and had an echocardiogram, which showed that his left ventricular systolic function was depressed. He has basal inferior, posterior and lateral wall hypokinesis. His ejection fraction was estimated at 40% with [id number] mitral regurgitation, mild tricuspid regurgitation. Pulmonary artery pressure was estimated at 47 mmHg. The patient therefore was transferred to [facility] for cardiac catheterization and basically underwent successful PCI to the right coronary artery with implantation of resolute drug-eluting stent with intravascular ultrasound guidance and was started on aspirin, prasugrel and high dose statin. PHYSICAL EXAMINATION: GENERAL: On the day of discharge, the patient looked well and was clearly in no apparent respiratory distress. On examining him, he looked pale. No jaundice, cyanosis or thyromegaly. No jugular venous distention. No limb edema. VITAL SIGNS: His heart rate was 65, blood pressure was 118/67, temperature was 98.1, respiratory rate 20, and oxygen saturation was 95% on 2 liters of oxygen. HEAD, EYES, EARS, NOSE, AND THROAT: Normocephalic, atraumatic. NECK: Supple. HEART: Normal first and second heart sounds. No gallop, rub or murmur. CHEST: Clear to auscultation, no crepitation or rhonchi. ABDOMEN: Distended, soft, nontender. NEUROLOGIC: He was grossly intact. LABORATORY DATA: His lab work showed white cell count 12,400, hemoglobin 12.4, hematocrit 36.6, MCV 92 and platelet count 232,000. His chemistry showed a serum sodium of 138, potassium 3.5, chloride 102, bicarbonate 26, anion gap of 10, his BUN 15, creatinine 0.9. Estimated GFR was 85 mL per minute. His glucose 157, calcium was 7.8, magnesium was 2. DISCHARGE MEDICATIONS: He was discharged home to continue on amiodarone 400 mg daily for 30 days, atorvastatin calcium 40 mg once a day, Protonix 40 mg once a day, prasugrel or Effient 10 mg daily and Entresto 49/51 mg tablet one tablet once a day. Should continue his albuterol sulfate 2.5 mg by nebulizer every 6 hours, aspirin 81 mg daily, citalopram hydrobromide or Celexa 20 mg once a day, clonidine 0.2 mg twice a day, dorzolamide 1 drop to both eyes twice a day, latanoprost 1 drop to both eyes at bedtime. He will continue on metformin 1000 mg twice a day, multivitamin 1 tablet once a day, metoprolol succinate 50 mg once a day, spironolactone 25 mg once a day, terazosin 1 mg daily and tiotropium bromide 1 inhalation once a day. FINAL DISCHARGE DIAGNOSES: 1. Non-ST segment myocardial infarction, status post percutaneous coronary intervention with drug-eluting stent deployment to the right coronary artery. 2. Acute hypoxic respiratory failure secondary to acute congestive heart failure and acute exacerbation of chronic obstructive pulmonary disease. 3. Acute on chronic systolic congestive heart failure. 4. Ischemic cardiomyopathy. 5. Abnormal arrhythmias. EKG showed that he was in sinus rhythm with right bundle branch block, multifocal premature ventricular contraction. 6. Hypertension. 7. Manolo-Danlos syndrome. 8. Hyperlipidemia. MARGARET/TYESHA DR: Glendy TID: [id number]
== END 2021-08-12 14:00 | disposition home or self-care (01) | DRG 280 ==
LOC: 1 WEST ICU 04:24
PROVIDERS: ADMIT Internal Medicine; ATTEND Internal Medicine
DX: I11.0 Hypertensive heart disease with heart failure (principal); I21.4 Non-ST elevation (NSTEMI) myocardial infarction; I50.23 Acute on chronic systolic (congestive) heart failure; J96.01 Acute respiratory failure with hypoxia; J44.1 Chronic obstructive pulmonary disease with (acute) exacerbation; Q79.60 Ehlers-Danlos syndrome, unspecified; E11.9 Type 2 diabetes mellitus without complications; E78.5 Hyperlipidemia, unspecified; E87.6 Hypokalemia; I25.10 Atherosclerotic heart disease of native coronary artery without angina pectoris; I25.5 Ischemic cardiomyopathy; I45.10 Unspecified right bundle-branch block; N40.0 Benign prostatic hyperplasia without lower urinary tract symptoms; Z20.822 Contact with and (suspected) exposure to COVID-19; Z82.49 Family history of ischemic heart disease and other diseases of the circulatory system; Z82.5 Family history of asthma and other chronic lower respiratory diseases; Z87.891 Personal history of nicotine dependence; Z95.5 Presence of coronary angioplasty implant and graft
CPT/HCPCS: 36415; 71045; 80048; 82962; 83605; 83735; 83880; 84100; 84484; 85025; 94640; 94760; J1650; J1815; J1940; J2920; G0378

== ENCOUNTER → 2021-11-12 | Outpatient (CLI) | payer BC ==
[2021-10-12 23:00] VITALS: BP 143/92
[~2021-11-12] MED LIST changes: +ACET325T9 PO; +EMPA10TA PO; +FURO40TA4 PO; +GUAI12003 PO; +METO-239 PO; -PEG15DRO4 OS; +PEG15DRO6 OS; +POTA-121 PO; +PRED20TA PO; +SODI44SP14 NS; +UMEC1DIS IH; +[UNRECOGNIZED DRUG - CODE] OP
--- NOTE | 2021-11-12 13:51 | KCIC ---
EXAM: Chest, 2 views. HISTORY: Shortness of air. COMPARISON: 10/18/2021 FINDINGS: 2 views of the chest are obtained. There is diffuse interstitial infiltrate superimposed on suspected chronic interstitial changes. There are small stable pleural effusions. There is a stable prominent cardiac silhouette. There is right apical pleural-parenchymal scarring. IMPRESSION: 1. Stable diffuse interstitial infiltrate superimposed on chronic interstitial changes. 2. Stable small pleural effusions. 3. Cardiomegaly. Electronically signed by: Sobeida Ramirez MD (11/12/2021 1:49 PM) [id number]
== END ==
LOC: KCIC 13:26
PROVIDERS: ATTEND Internal Medicine Pulmonary Disease
DX: J90 Pleural effusion, not elsewhere classified (principal); R91.8 Other nonspecific abnormal finding of lung field; I51.7 Cardiomegaly; R06.02 Shortness of breath
CPT/HCPCS: 71046